=== PATIENT | male | born 1950 | race American Indian/Alaskan Native ===

== ENCOUNTER 2016-07-13 14:50 | Outpatient (CLI) | payer MEDICARE ==
--- NOTE | 2016-07-14 08:43 | XRay Report ---
CHEST TWO VIEWS: 07/13/16 14:50:00 CLINICAL: Cough. COMPARISON: 04/13/16 FINDINGS: Mild cardiomegaly. Mild central vascular congestion. The lungs are normally expanded and clear.The bones and soft tissues are unremarkable. IMPRESSION: Mild cardiomegaly and pulmonary venous hypertension. No pulmonary edema or pneumonia.
== END 2016-07-13 14:51 | disposition home or self-care (01) ==
LOC: SPVIMAG 14:50
DX: I51.7 Cardiomegaly (principal); I27.2 Other secondary pulmonary hypertension
CPT/HCPCS: 71020

== ENCOUNTER 2017-05-18 17:11 | Inpatient (IN) | payer MEDICARE ==
[2017-05-18 18:15] LABS: Basophils # (Auto) 0.1 K/mm3 (0.0-0.1); Eosinophils # (Auto) 0.1 K/mm3 (0.0-0.4); Eosinophils % (Auto) 1.3 % (0.0-4.3); Hematocrit 31.8 % (35.5-45.6); Hemoglobin 10.3 gm/dl (11.8-15.2); Lymphocytes # (Auto) 0.9 K/mm3 (1.2-5.4); Lymphocytes % (Auto) 16.2 % (13.4-35.0); Mean Corpuscular HGB Conc 32 % (32-34); Mean Corpuscular Hemoglobin 28 pg (28-32); Mean Corpuscular Volume 86 fl (84-94); Monocytes # (Auto) 0.5 K/mm3 (0.0-0.8); Monocytes % (Auto) 8.8 % (0.0-7.3); Platelet Count 204 K/mm3 (140-440); Red Blood Count 3.68 M/mm3 (3.65-5.03); Red Cell Distribution Width 15.9 % (13.2-15.2)
[2017-05-18 18:25] LABS: INR 0.89 (0.87-1.13)
[2017-05-18 18:26] LABS: Partial Thromboplastin Time 33.8 Sec. (24.2-36.6)
[2017-05-18 18:30] LABS: Albumin 3.8 g/dL (3.9-5); Calcium 8.5 mg/dL (8.4-10.2)
--- NOTE | 2017-05-18 19:43 | XRay Report ---
FINAL REPORT EXAM: XR CHEST ROUTINE 2V HISTORY: left arm pain. hx of septic arthritis TECHNIQUE: 2 views of the chest. PRIORS: 03/08/2017 FINDINGS: There is a right-sided Vas-Cath in place the tip overlying the right atrium. The cardiomediastinal silhouette appears normal. The lungs are clear. The bones and soft tissues are unremarkable. IMPRESSION: No evidence of acute cardiopulmonary disease
[2017-05-18] MEDS ORDERED: DILAUDID IV ONE (22:11)
[2017-05-18] MEDS ORDERED: ZOFRAN IV ONE (22:11)
--- NOTE | 2017-05-18 22:40 | Emergency Department Report ---
ED Fever HPI - General Chief Complaint: Extremity Injury, Upper Stated Complaint: ARM INFECTION DIALYSIS PORT Time Seen by Provider: 05/18/17 22:00 Source: patient, family, old records Exam Limitations: no limitations - History of Present Illness Initial Comments: 66-year-old male with a past medical history of arthritis, asthma, CHF, COPD, DVT, diabetes, CAD, hypertension, end-stage renal disease on dialysis, and admission in March for septic arthritis of the left elbow presents to the hospital with complaints of recurrent left elbow pain and fever. Upon previous medical records review pt was admitted her April 11 until April 16 with a diagnosis of MRSA left elbow joint infection. Patient was discharged after treatment in the hospital and continued vancomycin during dialysis until May 12 as per discharge summary note. Patient redeveloped left elbow pain last night was noticed to have over a 101 fever at dialysis today. Blood cultures and vancomycin was administered prior to arrival. Patient complains of 10/10 left elbow pain that is throbbing, constant, worse with movement and palpation. Patient denies cough. He states he still makes urine and has some dysuria for the last several days. ED Review of Systems ROS: Stated complaint: ARM INFECTION DIALYSIS PORT Other details as noted in HPI Comment: All other systems reviewed and negative ED Past Medical Hx - Past Medical History Previous Medical History?: Yes Hx Hypertension: Yes Hx Heart Attack/AMI: Yes Hx Congestive Heart Failure: Yes Hx Diabetes: Yes Hx Deep Vein Thrombosis: Yes Hx Pulmonary Embolism: Yes Hx GERD: Yes Hx Renal Disease: Yes ("kidney problems" renal insufficiency) Hx Arthritis: Yes Hx Asthma: Yes Hx COPD: Yes Hx HIV: No Additional medical history: glaucoma - Surgical History Past Surgical History?: Yes Additional Surgical History: left lung surgery (secondary to a "spot" on his lungs noncancerous) June, right chest perm cath - Social History Smoking Status: Former Smoker - Medications Home Medications: Home Medications Medication Instructions Recorded Confirmed Last Taken Type Latanoprost 1 drop OU QHS 04/11/13 04/11/17 04/10/17 History Aspirin [Aspirin TAB] 325 mg PO QDAY #30 tablet 10/29/16 04/11/17 04/10/17 Rx Gabapentin [Neurontin] 300 mg PO Q8H #90 capsule 10/29/16 04/11/17 04/10/17 Rx AtorvaSTATin [Lipitor] 40 mg PO QHS #30 tablet 03/14/17 04/11/17 04/10/17 Rx Carvedilol [Coreg] 25 mg PO BID #60 tablet 03/14/17 04/11/17 04/10/17 Rx Furosemide [Lasix TAB] 40 mg PO 0600,1800 #60 tablet 03/14/17 04/11/17 04/10/17 Rx Insulin NPH Hum/Reg Insulin Hm 36 unit SQ BID 30 Days vial 03/14/17 04/11/17 Rx [HumuLIN 70-30 Vial] Isosorbide Dinitrate [Isordil 10 mg PO Q8HR #90 tablet 03/14/17 04/11/17 Rx Titradose] hydrALAZINE [Apresoline TAB] 50 mg PO Q8HR #180 tablet 03/14/17 04/11/17 Rx predniSONE [Deltasone] 20 mg PO QDAY #5 tablet 04/18/17 Unknown Rx ED Physical Exam - General Limitations: Physical Limitation - Other Other exam information: General: No limitations Head exam: Atraumatic, normocephalic Eyes exam: Normal appearance ENT: Moist mucous membrane, normal oropharynx Neck exam: Normal inspection, full range of motion, no meningismus nontender Respiratory exam: Clear to auscultation bilateral, no wheezes, rales, crackles Cardiovascular: Normal rate and rhythm, right chest wall dialysis catheter Abdomen: Soft, nondistended, and nontender, with normal bowel sounds, no rebound, or guarding Extremity: Left elbow tender to light palpation, warm to touch, patient refusing to move elbow secondary to pain. Back: Normal Inspection, full range of motion, no tenderness Neurologic: Alert, oriented x3, cranial nerves intact, no motor or sensory deficit Psychiatric: normal affect, normal mood Skin: Warm, dry, intact ED Course Vital Signs 05/18/17 05/18/17 17:22 22:05 Temperature 97.8 F 99.0 F Pulse Rate 109 H 72 Respiratory 22 19 Rate Blood Pressure 150/86 Blood Pressure 140/72 [Left] O2 Sat by Pulse 95 100 Oximetry - Reevaluation(s) Reevaluation #1: 05/18/17 23:01 pt received dilaudid and zofran. pain improving - Consultations Consultation #1: 04/04/18 22:39 Case d/w Dr Rivera rec admission pt received blood cultures drawn and vancomycin prior to arrival at dialysis Center Consultation #2: 05/18/17 22:[address] Maciel orthopedic surgeon. He is familiar with the patient from previous admission. Will consult ED Medical Decision Making - Lab Data Result diagrams: 05/18/17 17:52 05/18/17 17:52 Lab Results 05/18/17 05/18/17 05/18/17 Range/Units 17:52 17:52 17:52 WBC 5.4 (4.5-11.0) K/mm3 RBC 3.68 (3.65-5.03) M/mm3 Hgb 10.3 L (11.8-15.2) gm/dl Hct 31.8 L (35.5-45.6) % MCV 86 (84-94) fl MCH 28 (28-32) pg MCHC 32 (32-34) % RDW 15.9 H (13.2-15.2) % Plt Count 204 (140-440) K/mm3 Lymph % (Auto) 16.2 (13.4-35.0) % [place] % (Auto) 8.8 H (0.0-7.3) % Eos % (Auto) 1.3 (0.0-4.3) % Baso % (Auto) 1.0 (0.0-1.8) % Lymph # 0.9 L (1.2-5.4) K/mm3 [place] # 0.5 (0.0-0.8) K/mm3 Eos # 0.1 (0.0-0.4) K/mm3 Baso # 0.1 (0.0-0.1) K/mm3 Seg Neutrophils % 72.7 H (40.0-70.0) % Seg Neutrophils # 3.9 (1.8-7.7) K/mm3 PT 12.5 (12.2-14.9) Sec. INR 0.89 (0.87-1.13) APTT 33.8 (24.2-36.6) Sec. Sodium 136 L (137-145) mmol/L Potassium 3.1 L (3.6-5.0) mmol/L Chloride 95.5 L (98-107) mmol/L Carbon Dioxide 25 (22-30) mmol/L Anion Gap 19 mmol/L BUN 14 (9-20) mg/dL Creatinine 2.7 H (0.8-1.5) mg/dL Estimated GFR 29 ml/min BUN/Creatinine Ratio 5 % Glucose 113 H (75-100) mg/dL Calcium 8.5 (8.4-10.2) mg/dL Total Bilirubin 0.50 (0.1-1.2) mg/dL AST 21 (5-40) units/L ALT 18 (7-56) units/L Alkaline Phosphatase 98 (35-129) units/L Total Protein 7.5 (6.3-8.2) g/dL Albumin 3.8 L (3.9-5) g/dL Albumin/Globulin Ratio 1.0 % - Medical Decision Making Left elbow pain Recently treated MRSA/septic arthritis until the end of April. Recurrent pain and fever Please see blood culture antibiotics prior to arrival Dilaudid and Zofran ordered for pain/nausea Dr. Maciel orthopedics called Hospitalist informed that infectious disease Dr. Brito will need to be consulted End-stage renal disease Compliant with dialysis with last session prior to arrival No signs of sepsis at this time Hospitalist to admit - Differential Diagnosis gout, inflammatory arthritis Critical Care Time: No Critical care attestation.: If time is entered above; I have spent that time in minutes in the direct care of this critically ill patient, excluding procedure time. ED Disposition Clinical Impression: ESRD needing dialysis, Fever Septic arthritis Qualifiers: Septic arthritis location: elbow Septic arthritis organism: due to unspecified organism Laterality: left Qualified Code(s): M00.9 - Pyogenic arthritis, unspecified Disposition: OP ADMIT IP TO THIS HOSP Is pt being admited?: Yes Condition: Stable Time of Disposition: 22:39 (Dr Ha/hosp)
--- NOTE | 2017-05-18 23:25 | History and Physical Report ---
History of Present Illness Date of examination: 05/18/17 History of present illness: 66-year-old man with a history of COPD, coronary artery disease, CHF, hypertension, diabetes, chronic kidney disease, glaucoma comes to the emergency room with complaints of left-sided chest pain that started on Tuesday which she describes a dull pain, radiating to the left shoulder, intermittent in nature, lasting for a few minutes, intensity 5/10. Admits to shortness of breath, no nausea vomiting diaphoresis or palpitation. He had a cardiac cath one year ago which was normal. He also complaining of left elbow pain, decreased range of motion and fever. He was given vancomycin at dialysis today and sent to the emergency room Review Of Systems: Constitutional: no weight loss Ears, eyes, nose, mouth and throat: no nasal congestion, no nasal discharge, no sinus pressure, blurry vision, diplopia Neck: No neck pain or rigidity. Cardiovascular: NO chest pain, orthopnea, palpitations Respiratory: No cough Gastrointestinal: no abdominal pain, hematochezia Genitourinary : no dysuria, frequency , hematuria Musculoskeletal: no muscle ache Integumentary: no rash, no pruritis Neurological: no parathesias, focal weakness Endocrine: no cold or heat intolerance, no polyuria or polydipsia Hematologic/Lymphatic: no easy bruising, no easy bleeding, no gland swelling Allergic/Immunologic: no urticaria, no angioedema. PAST MEDICAL HISTORY:COPD, coronary artery disease, CHF, hypertension, diabetes , chronic kidney disease, glaucoma PAST SURGICAL HISTORY:left lung surgery FAMILY HISTORY:diabetes, hypertension SOCIAL HISTORY: Denies alcohol, tobacco, drugs Medications and Allergies Allergies Allergy/AdvReac Type Severity Reaction Status Date / Time No Known Allergies Allergy Verified 04/11/17 08:05 Home Medications Medication Instructions Recorded Confirmed Last Taken Type Latanoprost 1 drop OU QHS 04/11/13 04/11/17 04/10/17 History Aspirin [Aspirin TAB] 325 mg PO QDAY #30 tablet 10/29/16 04/11/17 04/10/17 Rx Gabapentin [Neurontin] 300 mg PO Q8H #90 capsule 10/29/16 04/11/17 04/10/17 Rx AtorvaSTATin [Lipitor] 40 mg PO QHS #30 tablet 03/14/17 04/11/17 04/10/17 Rx Carvedilol [Coreg] 25 mg PO BID #60 tablet 03/14/17 04/11/17 04/10/17 Rx Furosemide [Lasix TAB] 40 mg PO 0600,1800 #60 tablet 03/14/17 04/11/17 04/10/17 Rx Insulin NPH Hum/Reg Insulin Hm 36 unit SQ BID 30 Days vial 03/14/17 04/11/17 Rx [HumuLIN 70-30 Vial] Isosorbide Dinitrate [Isordil 10 mg PO Q8HR #90 tablet 03/14/17 04/11/17 Rx Titradose] hydrALAZINE [Apresoline TAB] 50 mg PO Q8HR #180 tablet 03/14/17 04/11/17 Rx predniSONE [Deltasone] 20 mg PO QDAY #5 tablet 04/18/17 Unknown Rx Exam - Constitutional Vitals: Temp Pulse Resp BP Pulse Ox 99.0 F 72 19 140/72 100 05/18/17 22:05 05/18/17 22:05 05/18/17 22:05 05/18/17 22:05 05/18/17 22:05 Results - Labs CBC & Chem 7: 05/19/17 03:10 05/19/17 03:10 Labs: Abnormal lab results 05/18/17 05/18/17 Range/Units 17:52 17:52 Hgb 10.3 L (11.8-15.2) gm/dl Hct 31.8 L (35.5-45.6) % RDW 15.9 H (13.2-15.2) % [place] % (Auto) 8.8 H (0.0-7.3) % Lymph # 0.9 L (1.2-5.4) K/mm3 Seg Neutrophils % 72.7 H (40.0-70.0) % Sodium 136 L (137-145) mmol/L Potassium 3.1 L (3.6-5.0) mmol/L Chloride 95.5 L (98-107) mmol/L Creatinine 2.7 H (0.8-1.5) mg/dL Glucose 113 H (75-100) mg/dL Albumin 3.8 L (3.9-5) g/dL - Imaging and Cardiology EKG: image reviewed Chest x-ray: image reviewed Assessment and Plan Assessment septic joint Chest pain chronic heart failure, systolic dysfunction Coronary artery disease COPD Hypertension Diabetes Chronic kidney disease Glaucoma Plan Admit to medicine Follow cultures, start IV Zosyn, consult orthopedic, renal Chief cardiac enzymes, consult cardiology Continue appropiate outpatient medications Check fingersticks and initiate insulin sliding scale DVT Prophylaxis
[2017-05-18] MEDS ORDERED: SODIUM CHLORIDE FLUSH SYRINGE 10 ML IV PRN (23:30)
[2017-05-18] MEDS ORDERED: MORPHINE IV PRN (23:30)
[2017-05-18] MEDS ORDERED: D50W (25GM) Syringe IV PRN (23:30)
[2017-05-18] MEDS ORDERED: TYLENOL PO PRN (23:30)
[2017-05-18] MEDS ORDERED: ZOFRAN IV PRN (23:30)
[2017-05-19 00:42] LABS: Creatine Kinase MB 1.6 ng/mL (0.0-4.0)
[2017-05-19 01:18] LABS: Chol/HDL Ratio 6.25 %
[2017-05-19 03:47] LABS: Basophils # (Auto) 0.1 K/mm3 (0.0-0.1); Basophils % (Auto) 1.3 % (0.0-1.8); Eosinophils # (Auto) 0.1 K/mm3 (0.0-0.4); Eosinophils % (Auto) 1.7 % (0.0-4.3); Hematocrit 29.5 % (35.5-45.6); Hemoglobin 9.6 gm/dl (11.8-15.2); Lymphocytes # (Auto) 1.1 K/mm3 (1.2-5.4); Lymphocytes % (Auto) 19.9 % (13.4-35.0); Mean Corpuscular HGB Conc 33 % (32-34); Mean Corpuscular Hemoglobin 28 pg (28-32); Mean Corpuscular Volume 86 fl (84-94); Monocytes # (Auto) 0.5 K/mm3 (0.0-0.8); Monocytes % (Auto) 9.7 % (0.0-7.3); Platelet Count 195 K/mm3 (140-440); Red Blood Count 3.44 M/mm3 (3.65-5.03)
[2017-05-19 03:59] LABS: Calcium 7.8 mg/dL (8.4-10.2)
[2017-05-19] MEDS ORDERED: D50W (25GM) Syringe IV PRN (06:13)
[2017-05-19] MEDS: APRESOLINE PO SCH ×3 (06:38→22:25)
[2017-05-19] MEDS: ISORDIL TITRADOSE PO SCH ×3 (06:39→22:25)
[2017-05-19] MEDS: ZOSYN/NS 2.25 GM/50ML 2.25 GM/50 ML BAG IV SCH ×3 (06:40→22:28)
[2017-05-19] MEDS: LASIX PO SCH ×2 (06:40→18:16)
[2017-05-19] MEDS: HumuLIN R SUB-Q SCH ×3 (07:00→17:30)
[2017-05-19] MEDS: NEURONTIN PO SCH ×3 (08:00→22:24)
[2017-05-19 08:34] LABS: Creatine Kinase MB 1.6 ng/mL (0.0-4.0)
--- NOTE | 2017-05-19 09:23 | Progress Note ---
Assessment and Plan septic joint Chest pain chronic heart failure, systolic dysfunction Coronary artery disease COPD Hypertension Diabetes Chronic kidney disease Glaucoma Plan Follow cultures, start IV Zosyn, consult orthopedic, renal Cardiac enzymes, consult cardiology Continue appropiate outpatient medications Insulin sliding scale, consistent CHO diet DVT Prophylaxis Subjective Date of service: 05/19/17 Principal diagnosis: chest pain, HF, septic Interval history: still having chest pain Objective - Constitutional Vitals: Vital Signs - 12hr 05/18/17 05/18/17 05/19/17 22:00 22:05 03:27 Temperature 99.0 F 99.2 F Pulse Rate 72 102 H Respiratory 19 19 Rate Blood Pressure 115/75 Blood Pressure 140/72 136/72 [Left] O2 Sat by Pulse 100 96 Oximetry 05/19/17 05/19/17 05/19/17 04:05 05:07 06:39 Temperature 98.2 F Pulse Rate 104 H 84 84 Respiratory 18 Rate Blood Pressure 117/76 Blood Pressure 117/76 [Left] O2 Sat by Pulse 94 Oximetry General appearance: Present: no acute distress, well-nourished - EENT Eyes: PERRL, EOM intact Ears: bilateral: normal - Neck Neck: supple, normal ROM - Respiratory Respiratory effort: normal Respiratory: bilateral: CTA - Cardiovascular Rhythm: regular Heart Sounds: Present: S1 & S2. Absent: gallop, rub Extremities: pulses intact, No edema, normal color, Full ROM - Gastrointestinal General gastrointestinal: Present: soft, non-tender, non-distended, normal bowel sounds - Integumentary Integumentary: clear, warm, dry - Musculoskeletal Musculoskeletal: 1, strength equal bilaterally - Neurologic Neurologic: moves all extremities - Psychiatric Psychiatric: memory intact, appropriate mood/affect, intact judgment & insight - Labs CBC & Chem 7: 05/19/17 03:10 05/19/17 03:10 Labs: Abnormal lab results 05/18/17 05/18/17 05/19/17 Range/Units 17:52 17:52 00:10 RBC (3.65-5.03) M/mm3 Hgb 10.3 L (11.8-15.2) gm/dl Hct 31.8 L (35.5-45.6) % RDW 15.9 H (13.2-15.2) % [place] % (Auto) 8.8 H (0.0-7.3) % Lymph # 0.9 L (1.2-5.4) K/mm3 Seg Neutrophils % 72.7 H (40.0-70.0) % Sodium 136 L (137-145) mmol/L Potassium 3.1 L (3.6-5.0) mmol/L Chloride 95.5 L (98-107) mmol/L Creatinine 2.7 H (0.8-1.5) mg/dL Glucose 113 H (75-100) mg/dL POC Glucose (70-105) Calcium (8.4-10.2) mg/dL Total Creatine Kinase 177 H (55-170) units/L Troponin T 0.103 H* (0.00-0.029) ng/mL Albumin 3.8 L (3.9-5) g/dL Triglycerides 277 H (2-149) mg/dL HDL Cholesterol 24 L (40-59) mg/dL 05/19/17 05/19/17 05/19/17 Range/Units 03:10 03:10 05:45 RBC 3.44 L (3.65-5.03) M/mm3 Hgb 9.6 L (11.8-15.2) gm/dl Hct 29.5 L (35.5-45.6) % RDW 16.0 H (13.2-15.2) % [place] % (Auto) 9.7 H (0.0-7.3) % Lymph # 1.1 L (1.2-5.4) K/mm3 Seg Neutrophils % (40.0-70.0) % Sodium (137-145) mmol/L Potassium 3.4 L (3.6-5.0) mmol/L Chloride 95.8 L (98-107) mmol/L Creatinine 3.4 H (0.8-1.5) mg/dL Glucose 109 H (75-100) mg/dL POC Glucose 117 H (70-105) Calcium 7.8 L (8.4-10.2) mg/dL Total Creatine Kinase (55-170) units/L Troponin T (0.00-0.029) ng/mL Albumin (3.9-5) g/dL Triglycerides (2-149) mg/dL HDL Cholesterol (40-59) mg/dL 05/19/17 Range/Units 06:36 RBC (3.65-5.03) M/mm3 Hgb (11.8-15.2) gm/dl Hct (35.5-45.6) % RDW (13.2-15.2) % [place] % (Auto) (0.0-7.3) % Lymph # (1.2-5.4) K/mm3 Seg Neutrophils % (40.0-70.0) % Sodium (137-145) mmol/L Potassium (3.6-5.0) mmol/L Chloride (98-107) mmol/L Creatinine (0.8-1.5) mg/dL Glucose (75-100) mg/dL POC Glucose (70-105) Calcium (8.4-10.2) mg/dL Total Creatine Kinase (55-170) units/L Troponin T 0.118 H* (0.00-0.029) ng/mL Albumin (3.9-5) g/dL Triglycerides (2-149) mg/dL HDL Cholesterol (40-59) mg/dL
--- NOTE | 2017-05-19 09:38 | Consultation ---
History of Present Illness - Reason for Consult Consult date: 05/19/17 end stage renal disease Requesting physician: CHARY ADAMSON - History of Present Illness 66-year-old male with a past medical history of arthritis, asthma, CHF, COPD, DVT, diabetes, CAD, hypertension, end-stage renal disease on dialysis, and admission in March for septic arthritis of the left elbow presents to the hospital with complaints of recurrent left elbow pain and fever. Upon previous medical records review pt was admitted her April 11 until April 16 with a diagnosis of MRSA left elbow joint infection. Patient was discharged after treatment in the hospital and continued vancomycin during dialysis until May 12 as per discharge summary note. Patient redeveloped left elbow pain last night was noticed to have over a 101 fever at dialysis today. Blood cultures and vancomycin was administered prior to arrival. Patient complains of 10/10 left elbow pain that is throbbing, constant, worse with movement and palpation. Patient denies cough. He states he still makes urine and has some dysuria for the last several days. He had hemodialysis treatment yesterday. Patient denies any shortness of breath. No nausea or vomiting or diarrhea. Past History Past Medical History: CAD, COPD, diabetes, dialysis, heart failure, hypertension Past Surgical History: Other (history of PermCath placement) Social history: no significant social history Family history: no significant family history Medications and Allergies Allergies Allergy/AdvReac Type Severity Reaction Status Date / Time No Known Allergies Allergy Verified 04/11/17 08:05 Home Medications Medication Instructions Recorded Confirmed Last Taken Type Latanoprost 1 drop OU QHS 04/11/13 04/11/17 04/10/17 History Aspirin [Aspirin TAB] 325 mg PO QDAY #30 tablet 10/29/16 04/11/17 04/10/17 Rx Gabapentin [Neurontin] 300 mg PO Q8H #90 capsule 10/29/16 04/11/17 04/10/17 Rx AtorvaSTATin [Lipitor] 40 mg PO QHS #30 tablet 03/14/17 04/11/17 04/10/17 Rx Carvedilol [Coreg] 25 mg PO BID #60 tablet 03/14/17 04/11/17 04/10/17 Rx Furosemide [Lasix TAB] 40 mg PO 0600,1800 #60 tablet 03/14/17 04/11/17 04/10/17 Rx Insulin NPH Hum/Reg Insulin Hm 36 unit SQ BID 30 Days vial 03/14/17 04/11/17 Rx [HumuLIN 70-30 Vial] Isosorbide Dinitrate [Isordil 10 mg PO Q8HR #90 tablet 03/14/17 04/11/17 Rx Titradose] hydrALAZINE [Apresoline TAB] 50 mg PO Q8HR #180 tablet 03/14/17 04/11/17 Rx predniSONE [Deltasone] 20 mg PO QDAY #5 tablet 04/18/17 Unknown Rx Active Meds: Active Medications Acetaminophen (Tylenol) 650 mg PO Q4H PRN PRN Reason: Pain MILD(1-3)/Fever >100.5/TANG Aspirin (Aspirin) 325 mg PO QDAY [facility] Atorvastatin Calcium (Lipitor) 40 mg PO QHS [facility] Carvedilol (Coreg) 25 mg PO BID [facility] Dextrose (D50w (25gm) Syringe) 50 ml IV PRN PRN PRN Reason: Hypoglycemia Enoxaparin Sodium (Lovenox) 30 mg SUB-Q QDAY [facility] Furosemide (Lasix) 40 mg PO 0600,1800 [facility] Last Admin: 05/19/17 06:40 Dose: 40 mg Gabapentin (Neurontin) 300 mg PO Q8HR [facility] Last Admin: 05/19/17 08:00 Dose: 300 mg Hydralazine HCl (Apresoline) 50 mg PO Q8HR [facility] Last Admin: 05/19/17 06:38 Dose: Not Given Piperacillin Sod/Tazobactam Sod (Zosyn/Ns 2.25 Gm/50ml) 2.25 gm in 50 mls @ 100 mls/hr IV Q8HR [facility]; Protocol Last Admin: 05/19/17 06:40 Dose: 100 mls/hr Insulin Human Isoph/Insulin Regular (Humulin 70/30) 36 unit SUB-Q BIDDIAB [facility] Last Admin: 05/19/17 08:00 Dose: 36 unit Insulin Human Regular (Humulin R) 0 units SUB-Q ACHS [facility]; Protocol Last Admin: 05/19/17 07:00 Dose: Not Given Isosorbide Dinitrate (Isordil Titradose) 10 mg PO Q8HR [facility] Last Admin: 05/19/17 06:39 Dose: Not Given Latanoprost (Latanoprost 0.005%) 1 drops OU QHS [facility] Morphine Sulfate (Morphine) 2 mg IV Q4H PRN PRN Reason: Pain, Moderate (4-6) Ondansetron HCl (Zofran) 4 mg IV Q8H PRN PRN Reason: Nausea And Vomiting Prednisone (Deltasone) 20 mg PO QDAY [facility] Sodium Chloride (Sodium Chloride Flush Syringe 10 Ml) 10 ml IV BID [facility] Sodium Chloride (Sodium Chloride Flush Syringe 10 Ml) 10 ml IV PRN PRN PRN Reason: LINE FLUSH Last Admin: 05/19/17 06:46 Dose: 10 ml Review of Systems All systems: negative (except as noted above) Exam - Vital Signs Vital signs: Vital Signs Temp Pulse Resp BP Pulse Ox 97.8 F 109 H 22 150/86 95 05/18/17 17:22 05/18/17 17:22 05/18/17 17:22 05/18/17 17:22 05/18/17 17:22 - General Appearance General appearance: well-developed, well-nourished, appears stated age EENT: PERRL, mucous membranes moist Neck: Present: neck supple, trachea midline, Other (right IJ PermCath in place) . Absent: JVD/HJR, [place] Respiratory: Clear to Ascultation Heart: regular, normal heart rate, S1S2, no murmurs Gastrointestinal: Present: normal, normoactive bowel sounds Musculoskeletal: Present: joint swelling (painful swelling in left elbow) Results - Lab Results 05/19/17 03:10 05/19/17 03:10 Most recent lab results Calcium 7.8 mg/dL (8.4-10.2) L 05/19/17 03:10 Assessment and Plan Impression * End-stage renal disease on maintenance hemodialysis * Painful swelling of left elbow * Recent septic arthritis * Hypertension * Diabetes * Coronary artery disease * Anemia secondary to ESRD Recommendations * No urgent indication for dialysis today. * Continue dialysis on Mondays, Wednesdays and Fridays as outpatient * Agree with cultures and broad-spectrum antibiotic * Procrit with dialysis * Binders with diet * Adjust diet and meds for ESRD state * Thank you very much for the consultation. Shall follow along with you
[2017-05-19] MEDS: COREG PO SCH ×2 (09:48→22:26)
[2017-05-19] MEDS: LOVENOX SUB-Q SCH (09:49)
[2017-05-19] MEDS: ASPIRIN PO SCH (09:49)
[2017-05-19] MEDS ORDERED: DELTASONE PO SCH (10:00)
[2017-05-19] MEDS: NORCO 5/325 PO PRN (11:17)
--- NOTE | 2017-05-19 12:40 | Consultation ---
History of Present Illness - [facility] Consult date: 05/19/17 Consult reason: joint pain History of present illness: 66 y/o male with c/o left arm pain, asked to evaluate possibility of deep infection... Past History Past Medical History: CAD, COPD, diabetes, dialysis, heart failure, hypertension Past Surgical History: Other (history of PermCath placement) Social history: no significant social history Family history: no significant family history Medications and Allergies Allergies Allergy/AdvReac Type Severity Reaction Status Date / Time No Known Allergies Allergy Verified 04/11/17 08:05 Home Medications Medication Instructions Recorded Confirmed Last Taken Type Latanoprost 1 drop OU QHS 04/11/13 04/11/17 04/10/17 History Aspirin [Aspirin TAB] 325 mg PO QDAY #30 tablet 10/29/16 04/11/17 04/10/17 Rx Gabapentin [Neurontin] 300 mg PO Q8H #90 capsule 10/29/16 04/11/17 04/10/17 Rx AtorvaSTATin [Lipitor] 40 mg PO QHS #30 tablet 03/14/17 04/11/17 04/10/17 Rx Carvedilol [Coreg] 25 mg PO BID #60 tablet 03/14/17 04/11/17 04/10/17 Rx Furosemide [Lasix TAB] 40 mg PO 0600,1800 #60 tablet 03/14/17 04/11/17 04/10/17 Rx Insulin NPH Hum/Reg Insulin Hm 36 unit SQ BID 30 Days vial 03/14/17 04/11/17 Rx [HumuLIN 70-30 Vial] Isosorbide Dinitrate [Isordil 10 mg PO Q8HR #90 tablet 03/14/17 04/11/17 Rx Titradose] hydrALAZINE [Apresoline TAB] 50 mg PO Q8HR #180 tablet 03/14/17 04/11/17 Rx predniSONE [Deltasone] 20 mg PO QDAY #5 tablet 04/18/17 Unknown Rx Active Meds: Active Medications Acetaminophen (Tylenol) 650 mg PO Q4H PRN PRN Reason: Pain MILD(1-3)/Fever >100.5/TANG Acetaminophen/Hydrocodone Bitart ([place] 5/325) 1 each PO Q6H PRN PRN Reason: Pain, Moderate (4-6) Last Admin: 05/19/17 11:17 Dose: 1 each Aspirin (Aspirin) 325 mg PO QDAY [facility] Last Admin: 05/19/17 09:49 Dose: 325 mg Atorvastatin Calcium (Lipitor) 40 mg PO QHS [facility] Carvedilol (Coreg) 25 mg PO BID [facility] Last Admin: 05/19/17 09:48 Dose: 25 mg Dextrose (D50w (25gm) Syringe) 50 ml IV PRN PRN PRN Reason: Hypoglycemia Enoxaparin Sodium (Lovenox) 30 mg SUB-Q QDAY [facility] Last Admin: 05/19/17 09:49 Dose: 30 mg Furosemide (Lasix) 40 mg PO 0600,1800 [facility] Last Admin: 05/19/17 06:40 Dose: 40 mg Gabapentin (Neurontin) 300 mg PO Q8HR [facility] Last Admin: 05/19/17 08:00 Dose: 300 mg Hydralazine HCl (Apresoline) 50 mg PO Q8HR [facility] Last Admin: 05/19/17 06:38 Dose: Not Given Piperacillin Sod/Tazobactam Sod (Zosyn/Ns 2.25 Gm/50ml) 2.25 gm in 50 mls @ 100 mls/hr IV Q8HR [facility]; Protocol Last Admin: 05/19/17 06:40 Dose: 100 mls/hr Insulin Human Isoph/Insulin Regular (Humulin 70/30) 36 unit SUB-Q BIDDIAB [facility] Last Admin: 05/19/17 08:00 Dose: 36 unit Insulin Human Regular (Humulin R) 0 units SUB-Q ACHS [facility]; Protocol Last Admin: 05/19/17 07:00 Dose: Not Given Isosorbide Dinitrate (Isordil Titradose) 10 mg PO Q8HR [facility] Last Admin: 05/19/17 06:39 Dose: Not Given Latanoprost (Latanoprost 0.005%) 1 drops OU QHS [facility] Morphine Sulfate (Morphine) 2 mg IV Q4H PRN PRN Reason: Pain, Moderate (4-6) Ondansetron HCl (Zofran) 4 mg IV Q8H PRN PRN Reason: Nausea And Vomiting Prednisone (Deltasone) 20 mg PO QDAY [facility] Last Admin: 05/19/17 09:48 Dose: 20 mg Sodium Chloride (Sodium Chloride Flush Syringe 10 Ml) 10 ml IV BID [facility] Sodium Chloride (Sodium Chloride Flush Syringe 10 Ml) 10 ml IV PRN PRN PRN Reason: LINE FLUSH Last Admin: 05/19/17 06:46 Dose: 10 ml Physical Examination - Physical exam Narrative exam: afebrile, wbc 6, patient with good passive and active ROM at left elbow Assessment and Plan left arm pain, doubt septic source in elbow joint continue observation and antibiotics
--- NOTE | 2017-05-19 12:52 | Consultation ---
History of Present Illness Consult date: 05/19/17 Consult reason: chest pain History of present illness: This is a 66yr old male with a history of end stage renal disease on hemodialysis. He was sent from dialysis to this hospital with complaints of left arm pain, fever and chills. Chest xray is negative. A cardiac consultation was requested for evaluation of chest pain. There is no ECG available for review. There is no history of coronary artery disease. Patient underwent extensive invasive cardiac workup in the past. A right and left cardiac cath a year ago demonstrated normal coronaries, but there was a finding of severe pulmonary hypertension with pulmonary artery systolic pressure 80 mmHg. A recent echocardiogram reports a decreased left ventricular systolic function of 30-35%. Past History Past Medical History: CAD, COPD, diabetes, dialysis, heart failure, hypertension Past Surgical History: Other (history of PermCath placement) Social history: no significant social history Family history: no significant family history Medications and Allergies Allergies Allergy/AdvReac Type Severity Reaction Status Date / Time No Known Allergies Allergy Verified 04/11/17 08:05 Home Medications Medication Instructions Recorded Confirmed Last Taken Type Latanoprost 1 drop OU QHS 04/11/13 04/11/17 04/10/17 History Aspirin [Aspirin TAB] 325 mg PO QDAY #30 tablet 10/29/16 04/11/17 04/10/17 Rx Gabapentin [Neurontin] 300 mg PO Q8H #90 capsule 10/29/16 04/11/17 04/10/17 Rx AtorvaSTATin [Lipitor] 40 mg PO QHS #30 tablet 03/14/17 04/11/17 04/10/17 Rx Carvedilol [Coreg] 25 mg PO BID #60 tablet 03/14/17 04/11/17 04/10/17 Rx Furosemide [Lasix TAB] 40 mg PO 0600,1800 #60 tablet 03/14/17 04/11/17 04/10/17 Rx Insulin NPH Hum/Reg Insulin Hm 36 unit SQ BID 30 Days vial 03/14/17 04/11/17 Rx [HumuLIN 70-30 Vial] Isosorbide Dinitrate [Isordil 10 mg PO Q8HR #90 tablet 03/14/17 04/11/17 Rx Titradose] hydrALAZINE [Apresoline TAB] 50 mg PO Q8HR #180 tablet 03/14/17 04/11/17 Rx predniSONE [Deltasone] 20 mg PO QDAY #5 tablet 04/18/17 Unknown Rx Active Meds: Active Medications Acetaminophen (Tylenol) 650 mg PO Q4H PRN PRN Reason: Pain MILD(1-3)/Fever >100.5/TANG Acetaminophen/Hydrocodone Bitart ([place] 5/325) 1 each PO Q6H PRN PRN Reason: Pain, Moderate (4-6) Last Admin: 05/19/17 11:17 Dose: 1 each Aspirin (Aspirin) 325 mg PO QDAY [facility] Last Admin: 05/19/17 09:49 Dose: 325 mg Atorvastatin Calcium (Lipitor) 40 mg PO QHS [facility] Carvedilol (Coreg) 25 mg PO BID [facility] Last Admin: 05/19/17 09:48 Dose: 25 mg Dextrose (D50w (25gm) Syringe) 50 ml IV PRN PRN PRN Reason: Hypoglycemia Enoxaparin Sodium (Lovenox) 30 mg SUB-Q QDAY [facility] Last Admin: 05/19/17 09:49 Dose: 30 mg Furosemide (Lasix) 40 mg PO 0600,1800 [facility] Last Admin: 05/19/17 06:40 Dose: 40 mg Gabapentin (Neurontin) 300 mg PO Q8HR [facility] Last Admin: 05/19/17 08:00 Dose: 300 mg Hydralazine HCl (Apresoline) 50 mg PO Q8HR [facility] Last Admin: 05/19/17 06:38 Dose: Not Given Piperacillin Sod/Tazobactam Sod (Zosyn/Ns 2.25 Gm/50ml) 2.25 gm in 50 mls @ 100 mls/hr IV Q8HR [facility]; Protocol Last Admin: 05/19/17 06:40 Dose: 100 mls/hr Insulin Human Isoph/Insulin Regular (Humulin 70/30) 36 unit SUB-Q BIDDIAB [facility] Last Admin: 05/19/17 08:00 Dose: 36 unit Insulin Human Regular (Humulin R) 0 units SUB-Q ACHS [facility]; Protocol Last Admin: 05/19/17 07:00 Dose: Not Given Isosorbide Dinitrate (Isordil Titradose) 10 mg PO Q8HR [facility] Last Admin: 05/19/17 06:39 Dose: Not Given Latanoprost (Latanoprost 0.005%) 1 drops OU QHS [facility] Morphine Sulfate (Morphine) 2 mg IV Q4H PRN PRN Reason: Pain, Moderate (4-6) Ondansetron HCl (Zofran) 4 mg IV Q8H PRN PRN Reason: Nausea And Vomiting Prednisone (Deltasone) 20 mg PO QDAY [facility] Last Admin: 05/19/17 09:48 Dose: 20 mg Sodium Chloride (Sodium Chloride Flush Syringe 10 Ml) 10 ml IV BID [facility] Sodium Chloride (Sodium Chloride Flush Syringe 10 Ml) 10 ml IV PRN PRN PRN Reason: LINE FLUSH Last Admin: 05/19/17 06:46 Dose: 10 ml Physical Examination Vital Signs Temp Pulse Resp BP Pulse Ox 97.8 F 109 H 22 150/86 95 05/18/17 17:22 05/18/17 17:22 05/18/17 17:22 05/18/17 17:22 05/18/17 17:22 Results 05/19/17 03:10 05/19/17 03:10 Cardiac Enzymes 05/18/17 05/19/17 05/19/17 Range/Units 17:52 00:10 06:36 AST 21 (5-40) units/L CK-MB (CK-2) 1.6 1.6 (0.0-4.0) ng/mL Coagulation 05/18/17 Range/Units 17:52 PT 12.5 (12.2-14.9) Sec. INR 0.89 (0.87-1.13) APTT 33.8 (24.2-36.6) Sec. Lipids 05/19/17 Range/Units 00:10 Triglycerides 277 H (2-149) mg/dL Cholesterol 150 (50-199) mg/dL HDL Cholesterol 24 L (40-59) mg/dL Cholesterol/HDL Ratio 6.25 % CBC 05/18/17 05/19/17 Range/Units 17:52 03:10 WBC 5.4 5.6 (4.5-11.0) K/mm3 RBC 3.68 3.44 L (3.65-5.03) M/mm3 Hgb 10.3 L 9.6 L (11.8-15.2) gm/dl Hct 31.8 L 29.5 L (35.5-45.6) % Plt Count 204 195 (140-440) K/mm3 Lymph # 0.9 L 1.1 L (1.2-5.4) K/mm3 [place] # 0.5 0.5 (0.0-0.8) K/mm3 Eos # 0.1 0.1 (0.0-0.4) K/mm3 Baso # 0.1 0.1 (0.0-0.1) K/mm3 Comprehensive Metabolic Panel 05/18/17 05/19/17 Range/Units 17:52 03:10 Sodium 136 L 137 (137-145) mmol/L Potassium 3.1 L 3.4 L (3.6-5.0) mmol/L Chloride 95.5 L 95.8 L (98-107) mmol/L Carbon Dioxide 25 26 (22-30) mmol/L BUN 14 18 (9-20) mg/dL Creatinine 2.7 H 3.4 H (0.8-1.5) mg/dL Glucose 113 H 109 H (75-100) mg/dL Calcium 8.5 7.8 L (8.4-10.2) mg/dL AST 21 (5-40) units/L ALT 18 (7-56) units/L Alkaline Phosphatase 98 (35-129) units/L Total Protein 7.5 (6.3-8.2) g/dL Albumin 3.8 L (3.9-5) g/dL Assessment and Plan Atypical chest pain [facility] 04/2016: normal coronaries Pulmonary HTN [facility] 04/2016: severe pulmonary hypertension with a pulmonary artery systolic 3 pressure that was measured at 80 mmHg.Group 2 and 3 pulmonary hypertension ESRD on dialysis Hypertension Diabetes Nonspecific elevated troponin Obesity Sleep apnea
[2017-05-19] MEDS ORDERED: BENADRYL PO PRN (17:14)
[2017-05-19] MEDS: SODIUM CHLORIDE FLUSH SYRINGE 10 ML IV SCH ×2 (22:23→22:26)
[2017-05-19] MEDS: LATANOPROST 0.005% OU SCH (22:41)
--- NOTE | 2017-05-20 01:55 | Progress Note ---
Assessment and Plan Assessment and plan: 66-year-old man with a history of COPD, coronary artery disease, CHF, hypertension, diabetes, esrd, glaucoma comes to the emergency room with complaints of left-sided chest pain , shortness of breath, He had a cardiac cath one year ago which was normal. He also complaining of left elbow pain, decreased range of motion and fever. He was given vancomycin at dialysis and sent to the emergency room LUE pain likely due to PC placement -will check Vascular US on UE, and consult vascular sx -orthopedic sx input appreciated Chest pain -likely musculoskeletal from PC placement -cardiology input appreciated -trop chronically elevated due to ESRD -recent cath, no further workup needed chronic heart failure, systolic dysfunction. ef 35% continue fluid status management per HD, nephrology on board COPD stable Hypertension continue meds Diabetes with hyperglycemia optmize insulins ESRD continue HD per renal Glaucoma History Interval history: Review of systems Constitutional: No fevers, no malaise, no joint pains CVS: No chest pain, no orthopnea, no dyspnea on exertion, no pedal edema GI: No abdominal pain, no diarrhea, no vomiting, no constipation Respiratory: No shortness of breath, no wheezing, no coughing Hospitalist Physical - Physical exam Narrative exam: General.: Appears well, no distress, nontoxic HEENT: Moist mucous membranes, extraocular muscles intact, no lymphadenopathy Neck: supple Cardiac: S1-S2 heard Lungs: clear to auscultation bilaterally Abdomen: soft , nontender, nondistended, bowel sounds positive Extremities: no edema clubbing or cyanosis Skin: no rash or lesions Neurologic: no gross focal deficits Psych: appropriate behavior, appropriate mood, corporative, judgment intact - Constitutional Vitals: Temp Pulse Resp BP Pulse Ox -98.3 F L 79 22 108/56 95 05/20/17 00:50 05/20/17 00:50 05/20/17 00:50 05/20/17 00:50 05/20/17 00:50 General appearance: Present: no acute distress, well-nourished Results - Labs CBC & Chem 7: 05/20/17 08:30 05/20/17 08:30 Labs: Laboratory Last Values WBC 5.6 K/mm3 (4.5-11.0) 05/19/17 03:10 RBC 3.44 M/mm3 (3.65-5.03) L 05/19/17 03:10 Hgb 9.6 gm/dl (11.8-15.2) L 05/19/17 03:10 Hct 29.5 % (35.5-45.6) L 05/19/17 03:10 MCV 86 fl (84-94) 05/19/17 03:10 MCH 28 pg (28-32) 05/19/17 03:10 MCHC 33 % (32-34) 05/19/17 03:10 RDW 16.0 % (13.2-15.2) H 05/19/17 03:10 Plt Count 195 K/mm3 (140-440) 05/19/17 03:10 Lymph % (Auto) 19.9 % (13.4-35.0) 05/19/17 03:10 [place] % (Auto) 9.7 % (0.0-7.3) H 05/19/17 03:10 Eos % (Auto) 1.7 % (0.0-4.3) 05/19/17 03:10 Baso % (Auto) 1.3 % (0.0-1.8) 05/19/17 03:10 Lymph # 1.1 K/mm3 (1.2-5.4) L 05/19/17 03:10 [place] # 0.5 K/mm3 (0.0-0.8) 05/19/17 03:10 Eos # 0.1 K/mm3 (0.0-0.4) 05/19/17 03:10 Baso # 0.1 K/mm3 (0.0-0.1) 05/19/17 03:10 Seg Neutrophils % 67.4 % (40.0-70.0) 05/19/17 03:10 Seg Neutrophils # 3.8 K/mm3 (1.8-7.7) 05/19/17 03:10 PT 12.5 Sec. (12.2-14.9) 05/18/17 17:52 INR 0.89 (0.87-1.13) 05/18/17 17:52 APTT 33.8 Sec. (24.2-36.6) 05/18/17 17:52 Sodium 137 mmol/L (137-145) 05/19/17 03:10 Potassium 3.4 mmol/L (3.6-5.0) L 05/19/17 03:10 Chloride 95.8 mmol/L (98-107) L 05/19/17 03:10 Carbon Dioxide 26 mmol/L (22-30) 05/19/17 03:10 Anion Gap 19 mmol/L 05/19/17 03:10 BUN 18 mg/dL (9-20) 05/19/17 03:10 Creatinine 3.4 mg/dL (0.8-1.5) H 05/19/17 03:10 Estimated GFR 22 ml/min 05/19/17 03:10 BUN/Creatinine Ratio 5 % 05/19/17 03:10 Glucose 109 mg/dL (75-100) H 05/19/17 03:10 POC Glucose 335 (70-105) H 05/19/17 15:26 Calcium 7.8 mg/dL (8.4-10.2) L 05/19/17 03:10 Total Bilirubin 0.50 mg/dL (0.1-1.2) 05/18/17 17:52 AST 21 units/L (5-40) 05/18/17 17:52 ALT 18 units/L (7-56) 05/18/17 17:52 Alkaline Phosphatase 98 units/L (35-129) 05/18/17 17:52 Total Creatine Kinase 165 units/L (55-170) 05/19/17 06:36 CK-MB (CK-2) 1.6 ng/mL (0.0-4.0) 05/19/17 06:36 CK-MB (CK-2) Rel Index 0.9 (0-4) 05/19/17 06:36 Troponin T 0.118 ng/mL (0.00-0.029) H* 05/19/17 06:36 Total Protein 7.5 g/dL (6.3-8.2) 05/18/17 17:52 Albumin 3.8 g/dL (3.9-5) L 05/18/17 17:52 Albumin/Globulin Ratio 1.0 % 05/18/17 17:52 Triglycerides 277 mg/dL (2-149) H 05/19/17 00:10 Cholesterol 150 mg/dL (50-199) 05/19/17 00:10 LDL Cholesterol Direct 78 mg/dL (50-130) 05/19/17 00:10 HDL Cholesterol 24 mg/dL (40-59) L 05/19/17 00:10 Cholesterol/HDL Ratio 6.25 % 05/19/17 00:10
[2017-05-20] MEDS: HumuLIN R SUB-Q SCH ×5 (02:58→22:12)
[2017-05-20] MEDS: LASIX PO SCH ×3 (05:35→18:40)
[2017-05-20] MEDS: NEURONTIN PO SCH ×3 (05:36→22:13)
[2017-05-20] MEDS: ZOSYN/NS 2.25 GM/50ML 2.25 GM/50 ML BAG IV SCH ×3 (05:37→22:12)
[2017-05-20 08:54] LABS: Basophils # (Auto) 0.1 K/mm3 (0.0-0.1); Eosinophils % (Auto) 0.2 % (0.0-4.3); Hematocrit 27.7 % (35.5-45.6); Hemoglobin 9.3 gm/dl (11.8-15.2); Lymphocytes % (Auto) 13.5 % (13.4-35.0); Mean Corpuscular HGB Conc 33 % (32-34); Mean Corpuscular Hemoglobin 28 pg (28-32); Mean Corpuscular Volume 84 fl (84-94); Monocytes # (Auto) 0.6 K/mm3 (0.0-0.8); Platelet Count 193 K/mm3 (140-440); Red Blood Count 3.29 M/mm3 (3.65-5.03); Red Cell Distribution Width 15.5 % (13.2-15.2)
[2017-05-20 09:11] LABS: Albumin 3.2 g/dL (3.9-5); Calcium 7.9 mg/dL (8.4-10.2)
[2017-05-20] MEDS: LOVENOX SUB-Q SCH (10:00)
[2017-05-20] MEDS: SODIUM CHLORIDE FLUSH SYRINGE 10 ML IV SCH ×2 (10:00→22:15)
[2017-05-20] MEDS: COREG PO SCH ×2 (10:00→22:13)
[2017-05-20] MEDS: DELTASONE PO SCH (10:00)
[2017-05-20] MEDS: ASPIRIN PO SCH (10:00)
[2017-05-20] MEDS ORDERED: NACL 0.9% 100 ML IV PRN (10:38)
--- NOTE | 2017-05-20 13:31 | Progress Note ---
Assessment and Plan Impression * End-stage renal disease on maintenance hemodialysis * Painful swelling of left elbow * Recent septic arthritis * Hypertension * Diabetes * Coronary artery disease * Anemia secondary to ESRD Recommendations * Continue dialysis on Mondays, Wednesdays and Fridays as outpatient * patient remains afebrile . Apparently no blood cultures were sent * On empiric antibiotic * Consultants notes appreciated * Procrit with dialysis * Binders with diet * Adjust diet and meds for ESRD state Subjective Date of service: 05/20/17 Principal diagnosis: chest pain, HF, septic Interval history: pt undergoing dialysis . Left elbow pain seems to be better Objective - Vital Signs Vital signs: Vital Signs - 12hr 05/20/17 05/20/17 05:00 08:06 Temperature 97.7 F 98.3 F Pulse Rate 86 68 Respiratory 22 16 Rate Blood Pressure 112/57 Blood Pressure 112/61 [Left] O2 Sat by Pulse 93 99 Oximetry - General Appearance General appearance: well-developed, well-nourished, appears stated age EENT: PERRL, mucous membranes moist Neck: no JVD, no thyromegaly, no carotid bruit, supple, other (right IJ permcath in place ) Respiratory: Present: Clear to Ascultation Cardiology: regular, normal heart rate Gastrointestinal: normal, normoactive bowel sounds Integumentary: other (no edema ) - Lab 05/20/17 08:30 05/20/17 08:30 Most recent lab results Calcium 7.9 mg/dL (8.4-10.2) L 05/20/17 08:30
[2017-05-20] MEDS: ISORDIL TITRADOSE PO SCH ×2 (14:00→22:13)
[2017-05-20] MEDS: APRESOLINE PO SCH ×2 (14:00→22:14)
[2017-05-20] MEDS: PROCRIT IV PRN (14:30)
[2017-05-20] MEDS: HEPARIN IV PRN (15:05)
[2017-05-20] MEDS ORDERED: NACL 0.9 (PRIMING MACHINE ONLY DIALYSIS) MC ONE (15:16)
--- NOTE | 2017-05-20 16:42 | Consultation ---
History of Present Illness - Reason for Consult Consult date: 05/20/17 Left arm pain - History of Present Illness Patient has left arm swelling and normal range of motion. No elevated WBC, no elevated temp, no cultures yet. He was treated for prior septic joint with outpatient Vancomycin. Vascular studies are normal. Past History Past Medical History: CAD, COPD, diabetes, dialysis, heart failure, hypertension Past Surgical History: Other (history of PermCath placement) Social history: no significant social history Family history: no significant family history Medications and Allergies Allergies Allergy/AdvReac Type Severity Reaction Status Date / Time No Known Allergies Allergy Verified 04/11/17 08:05 Home Medications Medication Instructions Recorded Confirmed Last Taken Type Latanoprost 1 drop OU QHS 04/11/13 05/20/17 1 Day Ago History ~05/19/17 Aspirin [Aspirin TAB] 325 mg PO QDAY #30 tablet 10/29/16 05/20/17 1 Day Ago Rx ~05/19/17 Gabapentin [Neurontin] 300 mg PO Q8H #90 capsule 10/29/16 05/20/17 1 Day Ago Rx ~05/19/17 AtorvaSTATin [Lipitor] 40 mg PO QHS #30 tablet 03/14/17 05/20/17 1 Day Ago Rx ~05/19/17 Carvedilol [Coreg] 25 mg PO BID #60 tablet 03/14/17 05/20/17 1 Day Ago Rx ~05/19/17 Furosemide [Lasix TAB] 40 mg PO 0600,1800 #60 tablet 03/14/17 05/20/17 1 Day Ago Rx ~05/19/17 Insulin NPH Hum/Reg Insulin Hm 36 unit SQ BID 30 Days vial 03/14/17 05/20/17 1 Day Ago Rx [HumuLIN 70-30 Vial] ~05/19/17 Isosorbide Dinitrate [Isordil 10 mg PO Q8HR #90 tablet 03/14/17 05/20/17 1 Day Ago Rx Titradose] ~05/19/17 hydrALAZINE [Apresoline TAB] 50 mg PO Q8HR #180 tablet 03/14/17 05/20/17 1 Day Ago Rx ~05/19/17 Active Meds: Active Medications Acetaminophen (Tylenol) 650 mg PO Q4H PRN PRN Reason: Pain MILD(1-3)/Fever >100.5/TANG Acetaminophen/Hydrocodone Bitart ([place] 5/325) 1 each PO Q6H PRN PRN Reason: Pain, Moderate (4-6) Last Admin: 05/19/17 11:17 Dose: 1 each Aspirin (Aspirin) 325 mg PO QDAY [facility] Last Admin: 05/19/17 09:49 Dose: 325 mg Atorvastatin Calcium (Lipitor) 40 mg PO QHS [facility] Last Admin: 05/19/17 22:24 Dose: 40 mg Carvedilol (Coreg) 25 mg PO BID [facility] Last Admin: 05/19/17 22:26 Dose: 25 mg Dextrose (D50w (25gm) Syringe) 50 ml IV PRN PRN PRN Reason: Hypoglycemia Diphenhydramine HCl (Benadryl) 25 mg PO Q6H PRN PRN Reason: Itching Last Admin: 05/19/17 18:16 Dose: 25 mg Enoxaparin Sodium (Lovenox) 30 mg SUB-Q QDAY [facility] Last Admin: 05/19/17 09:49 Dose: 30 mg Epoetin Lui (Procrit) 10,000 unit IV [place] PRN PRN Reason: hemodialysis Furosemide (Lasix) 40 mg PO 0600,1800 [facility] Last Admin: 05/20/17 05:36 Dose: 40 mg Gabapentin (Neurontin) 300 mg PO Q8HR [facility] Last Admin: 05/20/17 05:36 Dose: 300 mg Heparin Sodium (Porcine) (Heparin) 5,000 unit IV [place] PRN PRN Reason: hemodialysis Hydralazine HCl (Apresoline) 50 mg PO Q8HR [facility] Last Admin: 05/19/17 22:25 Dose: Not Given Piperacillin Sod/Tazobactam Sod (Zosyn/Ns 2.25 Gm/50ml) 2.25 gm in 50 mls @ 100 mls/hr IV Q8HR [facility]; Protocol Last Admin: 05/20/17 05:37 Dose: 100 mls/hr Sodium Chloride (Nacl 0.9%) 100 mls @ 999 mls/hr IV [place] PRN PRN Reason: Hypotension Insulin Human Isoph/Insulin Regular (Humulin 70/30) 40 unit SUB-Q BIDDIAB [facility] Insulin Human Regular (Humulin R) 0 units SUB-Q ACHS [facility]; Protocol Last Admin: 05/20/17 02:58 Dose: 10 units Isosorbide Dinitrate (Isordil Titradose) 10 mg PO Q8HR [facility] Last Admin: 05/19/17 22:25 Dose: Not Given Latanoprost (Latanoprost 0.005%) 1 drops OU QHS [facility] Last Admin: 05/19/17 22:41 Dose: 1 drops Ondansetron HCl (Zofran) 4 mg IV Q8H PRN PRN Reason: Nausea And Vomiting Prednisone (Deltasone) 10 mg PO QDAY [facility] Sodium Chloride (Sodium Chloride Flush Syringe 10 Ml) 10 ml IV BID [facility] Last Admin: 05/19/17 22:26 Dose: 10 ml Sodium Chloride (Sodium Chloride Flush Syringe 10 Ml) 10 ml IV PRN PRN PRN Reason: LINE FLUSH Last Admin: 05/19/17 06:46 Dose: 10 ml Review of Systems All systems: negative Exam - Constitutional Vitals: Temp Pulse Resp BP Pulse Ox 97.5 F L 76 18 132/71 99 05/20/17 11:05 05/20/17 13:45 05/20/17 11:05 05/20/17 13:45 05/20/17 08:06 General appearance: Present: no acute distress - EENT Eyes: Present: PERRL ENT: hearing intact - Neck Neck: Present: supple - Respiratory Respiratory effort: normal - Cardiovascular Rhythm: regular - Extremities Extremities: no ischemia Extremity abnormal: edema (LUE) - Abdominal General gastrointestinal: Present: deferred Male genitourinary: Present: deferred - Rectal Rectal Exam: deferred - Musculoskeletal Musculoskeletal: strength equal bilaterally - Psychiatric Psychiatric: appropriate mood/affect, cooperative - Neurologic Neurologic: no focal deficits Results - Labs CBC & Chem 7: 05/20/17 08:30 05/20/17 08:30 Labs: Abnormal lab results 05/20/17 05/20/17 05/20/17 Range/Units 02:46 08:30 08:30 RBC 3.29 L (3.65-5.03) M/mm3 Hgb 9.3 L (11.8-15.2) gm/dl Hct 27.7 L (35.5-45.6) % RDW 15.5 H (13.2-15.2) % [place] % (Auto) 8.0 H (0.0-7.3) % Lymph # 1.0 L (1.2-5.4) K/mm3 Seg Neutrophils % 77.3 H (40.0-70.0) % Chloride 97.2 L (98-107) mmol/L BUN 39 H (9-20) mg/dL Creatinine 5.3 H D (0.8-1.5) mg/dL Glucose 258 H (75-100) mg/dL POC Glucose 432 H (70-105) Calcium 7.9 L (8.4-10.2) mg/dL Albumin 3.2 L (3.9-5) g/dL - Imaging and Cardiology Venous US: image reviewed (arterial and venous) Assessment and Plan Patient will need CT of the left arm to evaluate the soft tissue. His arterial and venous ultrasounds are normal. His permcath is on the opposite of his symptomatic arm.
[2017-05-20] MEDS: NORCO 5/325 PO PRN (22:14)
[2017-05-20] MEDS: LATANOPROST 0.005% OU SCH (22:45)
[2017-05-21] MEDS: ISORDIL TITRADOSE PO SCH ×3 (06:38→22:04)
[2017-05-21] MEDS: APRESOLINE PO SCH ×3 (06:38→22:05)
[2017-05-21] MEDS: LASIX PO SCH (06:39)
[2017-05-21] MEDS: NEURONTIN PO SCH ×3 (06:39→22:02)
[2017-05-21] MEDS: ZOSYN/NS 2.25 GM/50ML 2.25 GM/50 ML BAG IV SCH ×3 (07:06→22:10)
[2017-05-21 07:11] LABS: Basophils # (Auto) 0.1 K/mm3 (0.0-0.1); Basophils % (Auto) 1.1 % (0.0-1.8); Eosinophils # (Auto) 0.1 K/mm3 (0.0-0.4); Eosinophils % (Auto) 1.5 % (0.0-4.3); Hematocrit 29.5 % (35.5-45.6); Hemoglobin 9.5 gm/dl (11.8-15.2); Lymphocytes # (Auto) 1.2 K/mm3 (1.2-5.4); Lymphocytes % (Auto) 20.8 % (13.4-35.0); Mean Corpuscular HGB Conc 32 % (32-34); Mean Corpuscular Hemoglobin 27 pg (28-32); Mean Corpuscular Volume 85 fl (84-94); Monocytes # (Auto) 0.5 K/mm3 (0.0-0.8); Monocytes % (Auto) 8.2 % (0.0-7.3); Platelet Count 215 K/mm3 (140-440); Red Blood Count 3.47 M/mm3 (3.65-5.03); Red Cell Distribution Width 15.3 % (13.2-15.2)
[2017-05-21 07:22] LABS: Albumin 3.2 g/dL (3.9-5)
--- NOTE | 2017-05-21 11:58 | Progress Note ---
Assessment and Plan Impression * End-stage renal disease on maintenance hemodialysis * Painful swelling of left elbow * Recent septic arthritis * Hypertension * Diabetes * Coronary artery disease * Anemia secondary to ESRD Recommendations * Continue dialysis on Mondays, Wednesdays and Fridays as outpatient * patient remains afebrile . Apparently no blood cultures were sent * On empiric antibiotic * Procrit with dialysis * Binders with diet * Adjust diet and meds for ESRD state * vascular surgery notes appreciated Subjective Date of service: 05/21/17 Principal diagnosis: chest pain, HF, septic Interval history: pt still complains of pain in his left elbow but getting better Objective - Vital Signs Vital signs: Vital Signs - 12hr 05/21/17 05/21/17 05/21/17 02:00 04:00 05:30 Temperature 98.6 F 98.5 F Pulse Rate 77 77 73 Respiratory 20 18 Rate Blood Pressure 81/42 84/36 Blood Pressure [Left] O2 Sat by Pulse 93 97 Oximetry 05/21/17 05/21/17 06:38 08:35 Temperature 98.6 F Pulse Rate 77 77 Respiratory 22 Rate Blood Pressure Blood Pressure 96/68 [Left] O2 Sat by Pulse 98 Oximetry - General Appearance General appearance: well-developed, well-nourished, appears stated age EENT: PERRL, mucous membranes moist Neck: no JVD, no thyromegaly, no carotid bruit, supple, other (right IJ permcath in place) Respiratory: Present: Clear to Ascultation Cardiology: regular, normal heart rate Gastrointestinal: normal, normoactive bowel sounds Integumentary: no rash - Lab 05/21/17 04:38 05/21/17 04:38 Most recent lab results Calcium 8.0 mg/dL (8.4-10.2) L 05/21/17 04:38
[2017-05-21] MEDS: ASPIRIN PO SCH (12:13)
[2017-05-21] MEDS: LOVENOX SUB-Q SCH (12:14)
[2017-05-21] MEDS: DELTASONE PO SCH (12:14)
[2017-05-21] MEDS: NORCO 5/325 PO PRN (12:15)
[2017-05-21] MEDS: SODIUM CHLORIDE FLUSH SYRINGE 10 ML IV SCH ×2 (12:15→22:07)
[2017-05-21] MEDS: HumuLIN R SUB-Q SCH ×3 (12:32→23:55)
--- NOTE | 2017-05-21 19:14 | Progress Note ---
Hospitalist Physical - Constitutional Vitals: Temp Pulse Resp BP Pulse Ox 98.5 F 75 20 110/56 96 05/21/17 15:48 05/21/17 15:48 05/21/17 15:48 05/21/17 15:48 05/21/17 15:48 General appearance: Present: no acute distress Results - Labs CBC & Chem 7: 05/21/17 04:38 05/21/17 04:38 Labs: Laboratory Last Values WBC 5.7 K/mm3 (4.5-11.0) 05/21/17 04:38 RBC 3.47 M/mm3 (3.65-5.03) L 05/21/17 04:38 Hgb 9.5 gm/dl (11.8-15.2) L 05/21/17 04:38 Hct 29.5 % (35.5-45.6) L 05/21/17 04:38 MCV 85 fl (84-94) 05/21/17 04:38 MCH 27 pg (28-32) L 05/21/17 04:38 MCHC 32 % (32-34) 05/21/17 04:38 RDW 15.3 % (13.2-15.2) H 05/21/17 04:38 Plt Count 215 K/mm3 (140-440) 05/21/17 04:38 Lymph % (Auto) 20.8 % (13.4-35.0) 05/21/17 04:38 Schleicher % (Auto) 8.2 % (0.0-7.3) H 05/21/17 04:38 Eos % (Auto) 1.5 % (0.0-4.3) 05/21/17 04:38 Baso % (Auto) 1.1 % (0.0-1.8) 05/21/17 04:38 Lymph # 1.2 K/mm3 (1.2-5.4) 05/21/17 04:38 Schleicher # 0.5 K/mm3 (0.0-0.8) 05/21/17 04:38 Eos # 0.1 K/mm3 (0.0-0.4) 05/21/17 04:38 Baso # 0.1 K/mm3 (0.0-0.1) 05/21/17 04:38 Seg Neutrophils % 68.4 % (40.0-70.0) 05/21/17 04:38 Seg Neutrophils # 3.9 K/mm3 (1.8-7.7) 05/21/17 04:38 PT 12.5 Sec. (12.2-14.9) 05/18/17 17:52 INR 0.89 (0.87-1.13) 05/18/17 17:52 APTT 33.8 Sec. (24.2-36.6) 05/18/17 17:52 Sodium 140 mmol/L (137-145) 05/21/17 04:38 Potassium 3.5 mmol/L (3.6-5.0) L 05/21/17 04:38 Chloride 96.4 mmol/L (98-107) L 05/21/17 04:38 Carbon Dioxide 26 mmol/L (22-30) 05/21/17 04:38 Anion Gap 21 mmol/L 05/21/17 04:38 BUN 23 mg/dL (9-20) H 05/21/17 04:38 Creatinine 4.6 mg/dL (0.8-1.5) H 05/21/17 04:38 Estimated GFR 16 ml/min 05/21/17 04:38 BUN/Creatinine Ratio 5 % 05/21/17 04:38 Glucose 273 mg/dL (75-100) H 05/21/17 04:38 POC Glucose 399 (70-105) H 05/20/17 20:49 Calcium 8.0 mg/dL (8.4-10.2) L 05/21/17 04:38 Total Bilirubin 0.30 mg/dL (0.1-1.2) 05/21/17 04:38 AST 14 units/L (5-40) 05/21/17 04:38 ALT 11 units/L (7-56) 05/21/17 04:38 Alkaline Phosphatase 73 units/L (35-129) 05/21/17 04:38 Total Creatine Kinase 165 units/L (55-170) 05/19/17 06:36 CK-MB (CK-2) 1.6 ng/mL (0.0-4.0) 05/19/17 06:36 CK-MB (CK-2) Rel Index 0.9 (0-4) 05/19/17 06:36 Troponin T 0.118 ng/mL (0.00-0.029) H* 05/19/17 06:36 Total Protein 6.8 g/dL (6.3-8.2) 05/21/17 04:38 Albumin 3.2 g/dL (3.9-5) L 05/21/17 04:38 Albumin/Globulin Ratio 0.9 % 05/21/17 04:38 Triglycerides 277 mg/dL (2-149) H 05/19/17 00:10 Cholesterol 150 mg/dL (50-199) 05/19/17 00:10 LDL Cholesterol Direct 78 mg/dL (50-130) 05/19/17 00:10 HDL Cholesterol 24 mg/dL (40-59) L 05/19/17 00:10 Cholesterol/HDL Ratio 6.25 % 05/19/17 00:10
[2017-05-21] MEDS: COREG PO SCH ×2 (22:01→22:03)
--- NOTE | 2017-05-21 22:49 | Cat Scan Report ---
FINAL REPORT EXAM: CT LT UPPER EXTREMITY CLINICAL INDICATIONS: LEFT ARM SWELLING FINDINGS: Contrast-enhanced CTA of the left arm was performed. sagittal and coronal three-dimensional reformatted images were generated. There is mild cardiomegaly. The ascending thoracic aorta is normal in size. The right brachiocephalic, left common carotid and left subclavian arteries are widely patent. The left axillary, brachial and radial and ulnar arteries appear widely patent. There is subcutaneous stranding of the ulnar aspect of the proximal forearm which is likely cellulitis. No soft tissue abscess is seen. There is no evidence of deep soft tissue infection. IMPRESSION: THE LEFT ARM ARTERIAL VASCULATURE APPEARS WIDELY PATENT SUSPECTED CELLULITIS OF PROXIMAL, ULNAR-SIDED SUBCUTANEOUS TISSUES OF PROXIMAL FOREARM. NO ABSCESS IS SEEN
[2017-05-21] MEDS: LATANOPROST 0.005% OU SCH (22:59)
[2017-05-22] MEDS: LASIX PO SCH ×2 (07:08→17:57)
[2017-05-22] MEDS: NEURONTIN PO SCH ×3 (07:09→21:45)
[2017-05-22] MEDS: ISORDIL TITRADOSE PO SCH ×3 (07:11→21:46)
[2017-05-22] MEDS: ZOSYN/NS 2.25 GM/50ML 2.25 GM/50 ML BAG IV SCH ×3 (07:11→21:45)
[2017-05-22] MEDS: APRESOLINE PO SCH ×3 (07:11→21:46)
--- NOTE | 2017-05-22 10:12 | Progress Note ---
Assessment and Plan Impression * End-stage renal disease on maintenance hemodialysis * Painful swelling of left elbow * Recent septic arthritis * Hypertension * Diabetes * Coronary artery disease * Anemia secondary to ESRD Recommendations * Continue dialysis on Mondays, Wednesdays and Fridays as outpatient * patient remains afebrile . Apparently no blood cultures were sent * On empiric antibiotic * CT scan showing cellulitis left upper fore-arm * Procrit with dialysis * Binders with diet * Adjust diet and meds for ESRD state Subjective Date of service: 05/22/17 Principal diagnosis: chest pain, HF, septic Interval history: pt still complains of pain in his left elbow but getting better Objective - Vital Signs Vital signs: Vital Signs - 12hr 05/22/17 05/22/17 05/22/17 00:21 04:57 08:09 Temperature 98.5 F 98.5 F 97.6 F Pulse Rate 69 70 67 Respiratory 20 50 H 20 Rate Blood Pressure 112/51 97/43 120/56 O2 Sat by Pulse 96 100 99 Oximetry - General Appearance General appearance: well-developed, well-nourished, appears stated age EENT: PERRL, mucous membranes moist Neck: no JVD, no thyromegaly, no carotid bruit, supple, other (right IJ permcath ) Respiratory: Present: Clear to Ascultation Cardiology: regular, normal heart rate, S1S2, no murmurs Gastrointestinal: normal, normoactive bowel sounds Integumentary: other (left elbow swelling improving ) - Lab 05/21/17 04:38 05/21/17 04:38 Most recent lab results Calcium 8.0 mg/dL (8.4-10.2) L 05/21/17 04:38
--- NOTE | 2017-05-22 10:19 | Progress Note ---
Assessment and Plan Patient with left arm cellulitis involving the forearm. His been afebrile with non-elevated white count and no positive cultures. Would consider continuing empiric antibiotics as his symptoms appear to be resolving with antibiotics therapy. Subjective Date of service: 05/22/17 Principal diagnosis: chest pain, HF, septic Interval history: A CT reviewed. No fluid collections involving the joint. The patient does have cellulitic changes to his forearm. He states that his arm is feeling somewhat better. Objective - Constitutional Vitals: Vital Signs - 12hr 05/22/17 05/22/17 05/22/17 00:21 04:57 08:09 Temperature 98.5 F 98.5 F 97.6 F Pulse Rate 69 70 67 Respiratory 20 50 H 20 Rate Blood Pressure 112/51 97/43 120/56 O2 Sat by Pulse 96 100 99 Oximetry General appearance: Present: no acute distress - EENT Eyes: PERRL ENT: hearing intact - Neck Neck: supple, normal ROM - Respiratory Respiratory effort: normal - Breasts Breasts: deferred Extremities: no ischemia Extremity abnormal: edema - Gastrointestinal General gastrointestinal: Present: deferred - Genitourinary Male genitourinary: deferred - Psychiatric Psychiatric: appropriate mood/affect, cooperative - Labs CBC & Chem 7: 05/21/17 04:38 05/21/17 04:38 Labs: Abnormal lab results 05/21/17 05/21/17 05/21/17 Range/Units 11:18 15:54 23:02 POC Glucose 307 H 323 H 317 H (70-105)
[2017-05-22] MEDS: HumuLIN R SUB-Q SCH ×3 (12:09→21:40)
[2017-05-22] MEDS: SODIUM CHLORIDE FLUSH SYRINGE 10 ML IV SCH ×2 (15:10→21:48)
[2017-05-22] MEDS: ASPIRIN PO SCH (15:10)
[2017-05-22] MEDS: LOVENOX SUB-Q SCH (15:10)
[2017-05-22] MEDS: DELTASONE PO SCH (15:11)
[2017-05-22] MEDS: COREG PO SCH ×2 (15:14→21:47)
[2017-05-22] MEDS: NORCO 5/325 PO PRN ×2 (15:16→22:42)
[2017-05-22 16:13] LABS: Albumin 3.1 g/dL (3.9-5); Calcium 7.6 mg/dL (8.4-10.2)
[2017-05-22] MEDS: LATANOPROST 0.005% OU SCH (22:12)
[2017-05-23] MEDS: ZOSYN/NS 2.25 GM/50ML 2.25 GM/50 ML BAG IV SCH (05:40)
[2017-05-23] MEDS: LASIX PO SCH ×2 (05:41→17:05)
[2017-05-23] MEDS: NEURONTIN PO SCH ×3 (05:41→21:54)
[2017-05-23] MEDS: ISORDIL TITRADOSE PO SCH ×4 (05:41→21:55)
[2017-05-23] MEDS: APRESOLINE PO SCH ×3 (05:43→21:54)
--- NOTE | 2017-05-23 09:49 | Progress Note ---
Assessment and Plan - Patient Problems (1) ESRD (end stage renal disease) Current Visit: Yes Status: Acute Plan to address problem: HD on M//. Pt with left elbow pain with cellulitis. ID consult reviewed. Antibiotics per ID, adjust dosing per renal function. Nutrition support. (2) Cellulitis Current Visit: Yes Status: Acute (3) Septic arthritis Current Visit: Yes Status: Acute Qualifiers: Septic arthritis location: elbow Septic arthritis organism: due to unspecified organism Laterality: left Qualified Code(s): M00.9 - Pyogenic arthritis, unspecified (4) Diabetes Current Visit: No Status: Chronic Qualifiers: Diabetes mellitus type: type 2 Diabetes mellitus complication status: with hyperglycemia (5) HTN (hypertension) Current Visit: No Status: Chronic (6) Anemia in CKD (chronic kidney disease) Current Visit: Yes Status: Chronic Subjective Date of service: 05/23/17 Principal diagnosis: chest pain, HF, septic Interval history: sleeping, but arousable, not in distress Objective - Vital Signs Vital signs: Vital Signs - 12hr 05/23/17 05/23/17 05/23/17 00:24 03:00 04:13 Temperature 97.8 F 97.8 F Pulse Rate 74 72 63 Respiratory 22 20 Rate Blood Pressure 128/61 Blood Pressure 112/60 [Left] O2 Sat by Pulse 98 99 Oximetry 05/23/17 08:11 Temperature 97.7 F Pulse Rate 61 Respiratory 16 Rate Blood Pressure Blood Pressure 120/58 [Left] O2 Sat by Pulse 98 Oximetry - General Appearance General appearance: well-developed EENT: mucous membranes moist Neck: no JVD Respiratory: Present: Clear to Ascultation Cardiology: regular Gastrointestinal: normoactive bowel sounds - Lab 05/21/17 04:38 05/22/17 14:43 Most recent lab results Calcium 7.6 mg/dL (8.4-10.2) L 05/22/17 14:43
[2017-05-23] MEDS: ASPIRIN PO SCH (09:57)
[2017-05-23] MEDS: DELTASONE PO SCH (09:57)
[2017-05-23] MEDS: LOVENOX SUB-Q SCH (09:58)
[2017-05-23] MEDS: COREG PO SCH ×2 (09:59→21:54)
[2017-05-23] MEDS: SODIUM CHLORIDE FLUSH SYRINGE 10 ML IV SCH (10:01)
[2017-05-23] MEDS: HumuLIN R SUB-Q SCH ×4 (10:03→23:31)
[2017-05-23] MEDS: PROCRIT IV PRN (14:11)
--- NOTE | 2017-05-23 14:38 | Consultation ---
History of Present Illness - Reason for Consult Consult date: 05/23/17 left arm cellulitis Requesting physician: GREG VIRK - History of Present Illness 66 YO Male with history of DE, HTN, CHF, DM, DVT, PE, GERD, ESRD on HD (M,W,F), OA, Asthma,Gout, COPD, well known to ID due to recent admission 04/11-04/18/17 when he was found to have presumed Left elbow septic arthritis due to MRSA and ORAL SURGERY TECHNICIAN septicemia. Patient presented left elbow pain and swelling for the past 1 month. he fell hitting his elbows on the floor a month before admission. Pt underwent arthrocentesis in ED and IV vancomycin was initiated. Elbow x-ray showed no abnormality identifies. Synovial fluid + [place] [address]. Synovial culture +MRSA. Blood cultures grew ORAL SURGERY TECHNICIAN 2 of 4 bottles. HD permcath placed a month before admit. TTE no vegetations. ID requested ortho evaluation. Ortho stated no indication for surgery. Patient was discharged on vancomycin 1 g IV q48h on HD total 4 weeks until 05/12/17 to cover MRSA elbow infection. Unfortunately, patient was readmitted due to worsening left elbow pain for 24 hours, throbbing, 10/10. Patient reports that the day of the last discharge he heated his left elbow again gains a chair. Since then pain has been worsening 8 out of 10. He reports a fever 101 at home. He said that he received IV antibiotics via HD until last month. Denies any recent cough, shortness of breath, nausea, vomiting, diarrhea. Denies any sick contacts. In the emergency room initial temperature was 97.8, heart rate 109, respiration 22, blood pressure 150/85, O2 sat 95. Initial white count 5.4. Hemoglobin 10.3. Platelets 204. Chest x-ray was negative. CT of the left arm show possible cellulitis in the proximal ulnar area. Shows soft tissue swelling. No abscess seen. ID consulted for further management of possible left upper extremity cellulitis. Microbiology: Blood cultures: 04/11 CNG 03/18 bottles 04/15 neg Repiratory cultures: Urine cultures Current Antimicrobials: Zosyn 05/19 Previous Antimicrobials: Vancomycin 04/11-05/12 Past History Past Medical History: CAD, COPD, diabetes, dialysis, heart failure, hypertension Past Surgical History: Other (history of PermCath placement) Social history: no significant social history Family history: no significant family history Medications and Allergies Allergies Allergy/AdvReac Type Severity Reaction Status Date / Time No Known Allergies Allergy Verified 04/11/17 08:05 Home Medications Medication Instructions Recorded Confirmed Last Taken Type Latanoprost 1 drop OU QHS 04/11/13 05/20/17 1 Day Ago History ~05/19/17 Aspirin [Aspirin TAB] 325 mg PO QDAY #30 tablet 10/29/16 05/20/17 1 Day Ago Rx ~05/19/17 Gabapentin [Neurontin] 300 mg PO Q8H #90 capsule 10/29/16 05/20/17 1 Day Ago Rx ~05/19/17 AtorvaSTATin [Lipitor] 40 mg PO QHS #30 tablet 03/14/17 05/20/17 1 Day Ago Rx ~05/19/17 Carvedilol [Coreg] 25 mg PO BID #60 tablet 03/14/17 05/20/17 1 Day Ago Rx ~05/19/17 Furosemide [Lasix TAB] 40 mg PO 0600,1800 #60 tablet 03/14/17 05/20/17 1 Day Ago Rx ~05/19/17 Insulin NPH Hum/Reg Insulin Hm 36 unit SQ BID 30 Days vial 03/14/17 05/20/17 1 Day Ago Rx [HumuLIN 70-30 Vial] ~05/19/17 Isosorbide Dinitrate [Isordil 10 mg PO Q8HR #90 tablet 03/14/17 05/20/17 1 Day Ago Rx Titradose] ~05/19/17 hydrALAZINE [Apresoline TAB] 50 mg PO Q8HR #180 tablet 03/14/17 05/20/17 1 Day Ago Rx ~05/19/17 Active Meds: Active Medications Acetaminophen (Tylenol) 650 mg PO Q4H PRN PRN Reason: Pain MILD(1-3)/Fever >100.5/TANG Acetaminophen/Hydrocodone Bitart (Freeland 5/325) 1 each PO Q6H PRN PRN Reason: Pain, Moderate (4-6) Last Admin: 05/22/17 22:42 Dose: 1 each Aspirin (Aspirin) 325 mg PO QDAY [facility] Last Admin: 05/23/17 09:57 Dose: 325 mg Atorvastatin Calcium (Lipitor) 40 mg PO QHS [facility] Last Admin: 05/22/17 21:45 Dose: 40 mg Carvedilol (Coreg) 25 mg PO BID [facility] Last Admin: 05/23/17 09:59 Dose: Not Given Dextrose (D50w (25gm) Syringe) 50 ml IV PRN PRN PRN Reason: Hypoglycemia Diphenhydramine HCl (Benadryl) 25 mg PO Q6H PRN PRN Reason: Itching Last Admin: 05/19/17 18:16 Dose: 25 mg Enoxaparin Sodium (Lovenox) 30 mg SUB-Q QDAY [facility] Last Admin: 05/23/17 09:58 Dose: 30 mg Epoetin Lui (Procrit) 10,000 unit IV [place] PRN PRN Reason: hemodialysis Last Admin: 05/23/17 14:11 Dose: 10,000 unit Furosemide (Lasix) 40 mg PO 0600,1800 [facility] Last Admin: 05/23/17 05:41 Dose: 40 mg Gabapentin (Neurontin) 300 mg PO Q8HR [facility] Last Admin: 05/23/17 05:41 Dose: 300 mg Heparin Sodium (Porcine) (Heparin) 5,000 unit IV [place] PRN PRN Reason: hemodialysis Last Admin: 05/20/17 15:05 Dose: 5,000 unit Hydralazine HCl (Apresoline) 50 mg PO Q8HR [facility] Last Admin: 05/23/17 05:43 Dose: Not Given Piperacillin Sod/Tazobactam Sod (Zosyn/Ns 2.25 Gm/50ml) 2.25 gm in 50 mls @ 100 mls/hr IV Q8HR [facility]; Protocol Last Admin: 05/23/17 05:40 Dose: 100 mls/hr Sodium Chloride (Nacl 0.9%) 100 mls @ 999 mls/hr IV [place] PRN PRN Reason: Hypotension Insulin Human Isoph/Insulin Regular (Humulin 70/30) 40 unit SUB-Q BIDDIAB [facility] Last Admin: 05/23/17 10:02 Dose: 40 unit Insulin Human Regular (Humulin R) 0 units SUB-Q ACHS [facility]; Protocol Last Admin: 05/23/17 10:03 Dose: 4 units Isosorbide Dinitrate (Isordil Titradose) 10 mg PO Q8HR [facility] Last Admin: 05/23/17 05:42 Dose: Not Given Latanoprost (Latanoprost 0.005%) 1 drops OU QHS [facility] Last Admin: 05/22/17 22:12 Dose: 1 drops Ondansetron HCl (Zofran) 4 mg IV Q8H PRN PRN Reason: Nausea And Vomiting Prednisone (Deltasone) 10 mg PO QDAY [facility] Last Admin: 05/23/17 09:57 Dose: 10 mg Sodium Chloride (Sodium Chloride Flush Syringe 10 Ml) 10 ml IV BID [facility] Last Admin: 05/23/17 10:01 Dose: 10 ml Sodium Chloride (Sodium Chloride Flush Syringe 10 Ml) 10 ml IV PRN PRN PRN Reason: LINE FLUSH Last Admin: 05/19/17 06:46 Dose: 10 ml Review of Systems All systems: negative (as per HPI rest of 10 point review of systems negative.) Physical Examination - Physical Exam Narrative exam: General appearance: Alert in NAD, conversant Eyes: anicteric sclerae, moist conjunctivae; no lid-lag; PERRLA HENT: Atraumatic; oropharynx clear with moist mucous membranes and no mucosal ulcerations/no oral thrush; normal hard and soft palate. Normal external ears. Neck: Trachea midline; supple, no thyromegaly or lymphadenopathy Lungs: CTA, with normal respiratory effort and no intercostal retractions CV: RRR Abdomen: Soft, non-tender; no masses or hepatosplenomegaly Extremities: Left forearm mild edema close to the elbow. Skin: Normal temperature, turgor and texture; no rash, ulcers or subcutaneous nodules Psych: Appropriate affect, alert and oriented to person, place and time. Neuro: alert and oriented x 3. Moving all extermities Lines: Right subclavian HD cath no edema, no erythema, no drainage. - Constitutional Vitals: Vital Signs Temp Pulse Resp BP Pulse Ox 97.5 F L 52 L 18 151/86 98 05/23/17 11:05 05/23/17 13:15 05/23/17 11:05 05/23/17 13:15 05/23/17 10:00 Temperature -Last 24 Hours Temperature 97.5 F Temperature 97.7 F Temperature 97.8 F Temperature 97.8 F Temperature 97.7 F Results - Labs CBC & Chem 7: 05/21/17 04:38 05/22/17 14:43 Labs: Abnormal lab results 05/22/17 05/23/17 Range/Units 14:43 05:57 Potassium 3.5 L (3.6-5.0) mmol/L Chloride 94.3 L (98-107) mmol/L BUN 40 H (9-20) mg/dL Creatinine 6.3 H (0.8-1.5) mg/dL Glucose 244 H (75-100) mg/dL POC Glucose 291 H (70-105) Calcium 7.6 L (8.4-10.2) mg/dL Albumin 3.1 L (3.9-5) g/dL Assessment and Plan Assessment: 1) Presumed SIRS: Present on admission, manifested by fever at home, tachycardia. Etiology unclear, should r/o persistent left elbow septic arthritis +/- cellulitis 2) Recent left elbow septic arthritis due to MRSA: -[place]ovial fluid [place] [address] -Synovial culture +MRSA. -Ortho consult no indication for surgery -CRP=7/6 on 04/11 -S/P vancomycin 1 g IV q48h on HD total 4 weeks until 05/12/17 -Repeat CT of the left arm show possible cellulitis in the proximal ulnar area. Shows soft tissue swelling. No abscess seen. 3) Recent ORAL SURGERY TECHNICIAN septicemia: -04/11/17 Blood cultures ORAL SURGERY TECHNICIAN 2 of 4 bottles -04/15/17 Blood cultures negative -TTE no vegetations. -HD permcath placed in Mar 2017 4) CAD / DE / CHF / HTN 5) DM 6) DVT/PE 7) ESRD on HD (M,W,F) 8) COPD Plan: -obtain blood cultures -obtain C-reactive protein (CRP) -Ortho consult in view of worsening left elbow pain after stopping IV antibiotics ? persistent joint infection -stop zosyn -continue vancomycin (received 1 dose in the ED) renally dosed -add cefazolin -pain management Thank you for your consultation, will follow up with you. Page Gupta MD Infectious Diseases Specialist [facility], [place] [facility] M [phone] O [phone]
[2017-05-23] MEDS ORDERED: VANCOMYCIN PHARMACY TO DOSE IV SCH (15:00)
[2017-05-23] MEDS ORDERED: VANCOMYCIN VIAL 1,000 MG in NACL 0.9% 100 ML IV PRN (15:00)
[2017-05-23] MEDS ORDERED: ceFAZolin 2 GM in NACL 0.9% 100 ML IV SCH (16:00)
[2017-05-23] MEDS ORDERED: cefTRIAXone 2 GM in NACL 0.9% 20 ML IV SCH (16:30)
[2017-05-23] MEDS: HEPARIN IV PRN (17:39)
[2017-05-23] MEDS: ceFAZolin 2 GM in NACL 0.9% 20 ML IV SCH (17:45)
[2017-05-23] MEDS ORDERED: VANCOMYCIN 2,000 MG in NACL 0.9% 500 ML 500 ML IV ONE (18:00)
[2017-05-23] MEDS: LATANOPROST 0.005% OU SCH (21:52)
[2017-05-24] MEDS: APRESOLINE PO SCH ×4 (05:41→22:56)
[2017-05-24] MEDS: LASIX PO SCH ×2 (05:42→18:32)
[2017-05-24] MEDS: NEURONTIN PO SCH ×3 (05:42→22:59)
[2017-05-24] MEDS: ISORDIL TITRADOSE PO SCH ×3 (05:44→23:00)
[2017-05-24] MEDS: SODIUM CHLORIDE FLUSH SYRINGE 10 ML IV SCH ×3 (06:41→22:59)
[2017-05-24] MEDS: HumuLIN R SUB-Q SCH ×4 (08:48→22:57)
[2017-05-24] MEDS: LOVENOX SUB-Q SCH (09:03)
[2017-05-24] MEDS: DELTASONE PO SCH (09:03)
[2017-05-24] MEDS: ASPIRIN PO SCH (09:03)
[2017-05-24] MEDS: COREG PO SCH ×2 (09:04→22:58)
--- NOTE | 2017-05-24 09:57 | Progress Note ---
Assessment and Plan - Patient Problems (1) ESRD (end stage renal disease) Current Visit: Yes Status: Acute Plan to address problem: HD on M/W/F. Pt with left elbow pain with cellulitis. ID notes reviewed. Antibiotics per ID, adjust dosing per renal function. Nutrition support. (2) Cellulitis Current Visit: Yes Status: Acute (3) Septic arthritis Current Visit: Yes Status: Acute Qualifiers: Septic arthritis location: elbow Septic arthritis organism: due to unspecified organism Laterality: left Qualified Code(s): M00.9 - Pyogenic arthritis, unspecified (4) Diabetes Current Visit: No Status: Chronic Qualifiers: Diabetes mellitus type: type 2 Diabetes mellitus complication status: with hyperglycemia (5) HTN (hypertension) Current Visit: No Status: Chronic Plan to address problem: BP under control. (6) Anemia in CKD (chronic kidney disease) Current Visit: Yes Status: Chronic Subjective Date of service: 05/24/17 Principal diagnosis: chest pain, HF, septic Interval history: sleeping, not in distress Objective - Vital Signs Vital signs: Vital Signs - 12hr 05/24/17 05/24/17 05/24/17 00:06 04:07 04:24 Temperature 98.8 F 98.6 F Pulse Rate 81 81 81 Respiratory 20 20 Rate Respiratory 18 Rate [chest] Blood Pressure 97/54 115/64 O2 Sat by Pulse 100 98 Oximetry 05/24/17 05/24/17 05/24/17 05:41 08:05 09:04 Temperature 98.7 F Pulse Rate 82 78 76 Respiratory 16 Rate Respiratory Rate [chest] Blood Pressure 115/64 122/61 101/44 O2 Sat by Pulse 98 Oximetry - General Appearance General appearance: well-developed EENT: mucous membranes moist Neck: no JVD Respiratory: Present: Clear to Ascultation Cardiology: regular Gastrointestinal: normoactive bowel sounds Musculoskeletal: other (left elbow-same) - Lab 05/21/17 04:38 05/22/17 14:43 Most recent lab results Calcium 7.6 mg/dL (8.4-10.2) L 05/22/17 14:43
--- NOTE | 2017-05-24 10:44 | Progress Note ---
Assessment and Plan Assessment: 1) Presumed SIRS: Present on admission, manifested by fever at home, tachycardia. Etiology unclear, should r/o persistent left elbow septic arthritis +/- cellulitis. 2) Recent left elbow septic arthritis due to MRSA: -[place] fluid [place] [address] -Synovial culture +MRSA. -Ortho consult no indication for surgery -CRP=7/6 on 04/11 -S/P vancomycin 1 g IV q48h on HD total 4 weeks until 05/12/17 -Repeat CT of the left arm showed possible cellulitis in the proximal ulnar area. Shows soft tissue swelling. No abscess seen. -As per ortho on 05/19 no evidence of septic arthritis. -Left elbow pain is improved. 3) Recent CREDIT OFFICER septicemia: -04/11/17 Blood cultures CREDIT OFFICER 2 of 4 bottles. -04/15/17 Blood cultures negative. -TTE no vegetations. -HD permcath placed in Mar 2017. -Blood cx 05/23 pending 4) CAD / MD / CHF / HTN 5) DM 6) DVT/PE 7) ESRD on HD (M,W,F) 8) COPD Plan: -Will f/u blood cultures. -continue vancomycin renally dosed. -Continue cefazolin. -pain management. -Will follow up with you. Tanesha Mosquera MD Infectious Diseases Specialist [facility] C [phone] Subjective Date of service: 05/24/17 Principal diagnosis: chest pain, HF, septic Interval history: Afebrile. Left elbow pain is improved. Denies cough, SOB, N/V/D, CP, abdominal pain. Microbiology: Blood cultures: 04/11 Coagulase Negative Staph 03/18 bottles 04/15 neg 05/23 pending Current Antimicrobials: Cefazolin 05/23- IV vancomycin 05/23- Previous Antimicrobials: Vancomycin 04/11-05/12 Zosyn 05/19-05/22 Objective - Exam Narrative Exam: General appearance: Alert in NAD, conversant Eyes: anicteric sclerae, moist conjunctivae; PERRLA HENT: Atraumatic; oropharynx clear, with moist mucous membranes and no mucosal ulcerations/no oral thrush; normal hard and soft palate. Normal external ears. Neck: Trachea midline; supple, no thyromegaly or lymphadenopathy Lungs: CTA, with normal respiratory effort and no intercostal retractions CV: S1,S2. Abdomen: Soft, non-tender; no masses or hepatosplenomegaly Extremities: Left forearm mild edema close to the elbow. No open wounds or erythema. Skin: Normal temperature, turgor and texture; no rash, ulcers or subcutaneous nodules Psych: Appropriate affect, alert and oriented to person, place and time. Neuro: alert and oriented x 3. Moving all extremities Lines: Right subclavian HD cath - no edema, no erythema, no drainage. - Constitutional Vitals: Vital Signs Temp Pulse Resp BP Pulse Ox 98.7 F 76 16 101/44 98 05/24/17 08:05 05/24/17 09:04 05/24/17 08:05 05/24/17 09:04 05/24/17 08:05 Temperature -Last 24 Hours Temperature 98.7 F Temperature 98.6 F Temperature 98.8 F Temperature 97.7 F Temperature 98.1 F Temperature 97.7 F Temperature 97.5 F - Labs CBC & Chem 7: 05/21/17 04:38 05/22/17 14:43 Labs: Abnormal lab results 05/23/17 05/23/17 05/24/17 Range/Units 16:37 21:16 05:55 POC Glucose 203 H 157 H (70-105) C-Reactive Protein 4.20 H (0.00-1.30) mg/dL
--- NOTE | 2017-05-24 15:30 | Progress Note ---
Hospitalist Physical - Constitutional Vitals: Temp Pulse Resp BP Pulse Ox 98.7 F 71 16 117/56 97 05/24/17 12:23 05/24/17 15:22 05/24/17 12:23 05/24/17 15:22 05/24/17 12:23 General appearance: Present: no acute distress Results - Labs CBC & Chem 7: 05/21/17 04:38 05/22/17 14:43 Labs: Laboratory Last Values WBC 5.7 K/mm3 (4.5-11.0) 05/21/17 04:38 RBC 3.47 M/mm3 (3.65-5.03) L 05/21/17 04:38 Hgb 9.5 gm/dl (11.8-15.2) L 05/21/17 04:38 Hct 29.5 % (35.5-45.6) L 05/21/17 04:38 MCV 85 fl (84-94) 05/21/17 04:38 MCH 27 pg (28-32) L 05/21/17 04:38 MCHC 32 % (32-34) 05/21/17 04:38 RDW 15.3 % (13.2-15.2) H 05/21/17 04:38 Plt Count 215 K/mm3 (140-440) 05/21/17 04:38 Lymph % (Auto) 20.8 % (13.4-35.0) 05/21/17 04:38 [place] % (Auto) 8.2 % (0.0-7.3) H 05/21/17 04:38 Eos % (Auto) 1.5 % (0.0-4.3) 05/21/17 04:38 Baso % (Auto) 1.1 % (0.0-1.8) 05/21/17 04:38 Lymph # 1.2 K/mm3 (1.2-5.4) 05/21/17 04:38 [place] # 0.5 K/mm3 (0.0-0.8) 05/21/17 04:38 Eos # 0.1 K/mm3 (0.0-0.4) 05/21/17 04:38 Baso # 0.1 K/mm3 (0.0-0.1) 05/21/17 04:38 Seg Neutrophils % 68.4 % (40.0-70.0) 05/21/17 04:38 Seg Neutrophils # 3.9 K/mm3 (1.8-7.7) 05/21/17 04:38 PT 12.5 Sec. (12.2-14.9) 05/18/17 17:52 INR 0.89 (0.87-1.13) 05/18/17 17:52 APTT 33.8 Sec. (24.2-36.6) 05/18/17 17:52 Sodium 140 mmol/L (137-145) 05/22/17 14:43 Potassium 3.5 mmol/L (3.6-5.0) L 05/22/17 14:43 Chloride 94.3 mmol/L (98-107) L 05/22/17 14:43 Carbon Dioxide 25 mmol/L (22-30) 05/22/17 14:43 Anion Gap 24 mmol/L 05/22/17 14:43 BUN 40 mg/dL (9-20) H 05/22/17 14:43 Creatinine 6.3 mg/dL (0.8-1.5) H 05/22/17 14:43 Estimated GFR 11 ml/min 05/22/17 14:43 BUN/Creatinine Ratio 6 % 05/22/17 14:43 Glucose 244 mg/dL (75-100) H 05/22/17 14:43 POC Glucose 145 (70-105) H 05/24/17 12:33 Calcium 7.6 mg/dL (8.4-10.2) L 05/22/17 14:43 Total Bilirubin 0.20 mg/dL (0.1-1.2) 05/22/17 14:43 AST 11 units/L (5-40) 05/22/17 14:43 ALT 9 units/L (7-56) 05/22/17 14:43 Alkaline Phosphatase 72 units/L (35-129) 05/22/17 14:43 Total Creatine Kinase 165 units/L (55-170) 05/19/17 06:36 CK-MB (CK-2) 1.6 ng/mL (0.0-4.0) 05/19/17 06:36 CK-MB (CK-2) Rel Index 0.9 (0-4) 05/19/17 06:36 Troponin T 0.118 ng/mL (0.00-0.029) H* 05/19/17 06:36 C-Reactive Protein 4.20 mg/dL (0.00-1.30) H 05/23/17 16:37 Total Protein 6.5 g/dL (6.3-8.2) 05/22/17 14:43 Albumin 3.1 g/dL (3.9-5) L 05/22/17 14:43 Albumin/Globulin Ratio 0.9 % 05/22/17 14:43 Triglycerides 277 mg/dL (2-149) H 05/19/17 00:10 Cholesterol 150 mg/dL (50-199) 05/19/17 00:10 LDL Cholesterol Direct 78 mg/dL (50-130) 05/19/17 00:10 HDL Cholesterol 24 mg/dL (40-59) L 05/19/17 00:10 Cholesterol/HDL Ratio 6.25 % 05/19/17 00:10
[2017-05-24] MEDS: ceFAZolin 2 GM in NACL 0.9% 20 ML IV SCH (18:32)
[2017-05-24] MEDS: LATANOPROST 0.005% OU SCH (23:18)
[2017-05-24] MEDS: NORCO 5/325 PO PRN (23:31)
--- NOTE | 2017-05-25 08:25 | Progress Note ---
Assessment and Plan - Patient Problems (1) ESRD (end stage renal disease) Current Visit: Yes Status: Chronic Plan to address problem: HD on M/W/. Pt with left elbow pain with cellulitis. ID notes reviewed. Antibiotics per ID, adjust dosing per renal function. Nutrition support. Pt was seen and examined durind dialysis today around 8.50AM.BP-137/78,P-75, afebrile (2) Cellulitis Current Visit: Yes Status: Acute (3) Septic arthritis Current Visit: Yes Status: Acute Qualifiers: Septic arthritis location: elbow Septic arthritis organism: due to unspecified organism Laterality: left Qualified Code(s): M00.9 - Pyogenic arthritis, unspecified (4) Diabetes Current Visit: No Status: Chronic Qualifiers: Diabetes mellitus type: type 2 Diabetes mellitus complication status: with hyperglycemia (5) HTN (hypertension) Current Visit: No Status: Chronic (6) Anemia in CKD (chronic kidney disease) Current Visit: Yes Status: Chronic Subjective Date of service: 05/25/17 Principal diagnosis: chest pain, HF, septic Interval history: alert, oriented, currently on HD. Pain in left elbow-same Objective - Vital Signs Vital signs: Vital Signs - 12hr 05/24/17 05/24/17 05/25/17 20:40 23:31 00:11 Temperature 98.5 F Pulse Rate 83 76 Respiratory 20 18 Rate Respiratory 18 Rate [chest] Blood Pressure 102/46 O2 Sat by Pulse 96 Oximetry 05/25/17 05:10 Temperature 98.2 F Pulse Rate 69 Respiratory 18 Rate Respiratory Rate [chest] Blood Pressure 126/68 O2 Sat by Pulse 98 Oximetry - General Appearance General appearance: well-developed, obese EENT: mucous membranes moist Neck: no JVD Respiratory: Present: Clear to Ascultation Cardiology: regular Gastrointestinal: normoactive bowel sounds Neurologic: alert and oriented x3 Musculoskeletal: other (left elbow swelling-same, right IJ catheter in use) Psychiatric: mood/affect appropriate, cooperative - Lab 05/21/17 04:38 05/22/17 14:43 Most recent lab results Calcium 7.6 mg/dL (8.4-10.2) L 05/22/17 14:43
--- NOTE | 2017-05-25 11:02 | Vascular Lab Report ---
UPPER EXTREMITY VENOUS DUPLEX: REASON FOR EXAM: Pain and swelling of the upper extremities COMMENTS ON THE RIGHT: All arm veins visualized are freely compressible without evidence of internal echogenicity. The subclavian and internal jugular veins are free of thrombus. Flow is spontaneous and phasic throughout. COMMENTS ON THE LEFT: All arm veins visualized are freely compressible without evidence of internal echogenicity. The subclavian and internal jugular veins are free of thrombus. Flow is spontaneous and phasic throughout. IMPRESSION: No evidence of acute or chronic deep venous thrombosis in the upper extremities.
--- NOTE | 2017-05-25 11:04 | Vascular Lab Report ---
Upper extremity arterial study Reason for exam: Upper extremity pain Comments: On the right, normal flow velocities are seen although a from the subclavian artery to the radial and ulnar arteries. Flow is triphasic throughout. There is no evidence of obstruction of the arteries of the right upper extremity. On the left, normal flow velocities are seen throughout the arterial system from the subclavian artery to the radial and ulnar arteries. Triphasic waveforms are seen throughout. There is no evidence of obstructed arteries in the left upper extremity. Impression: No evidence of arterial occlusive disease in either upper extremity.
[2017-05-25] MEDS: PROCRIT IV PRN (11:51)
[2017-05-25] MEDS: HEPARIN IV PRN (11:52)
[2017-05-25] MEDS: ASPIRIN PO SCH (12:23)
[2017-05-25] MEDS: COREG PO SCH (12:23)
[2017-05-25] MEDS: DELTASONE PO SCH (12:24)
[2017-05-25] MEDS: HumuLIN R SUB-Q SCH ×3 (12:26→12:40)
[2017-05-25] MEDS: LOVENOX SUB-Q SCH (12:28)
[2017-05-25] MEDS: SODIUM CHLORIDE FLUSH SYRINGE 10 ML IV SCH (12:38)
[2017-05-25] MEDS: LASIX PO SCH (12:40)
[2017-05-25] MEDS: ISORDIL TITRADOSE PO SCH ×2 (12:41→13:01)
[2017-05-25] MEDS: APRESOLINE PO SCH ×2 (12:41→13:02)
[2017-05-25] MEDS: NEURONTIN PO SCH ×2 (12:41→13:00)
--- NOTE | 2017-05-25 12:54 | Progress Note ---
Assessment and Plan Assessment: 1) Presumed SIRS: Present on admission, manifested by fever at home, tachycardia. Etiology unclear, should r/o persistent left elbow septic arthritis +/- cellulitis. 2) Recent left elbow septic arthritis due to MRSA: [place] [id number] -Synovial culture +MRSA. -Ortho consult no indication for surgery -CRP=7/6 on 04/11 -S/P vancomycin 1 g IV q48h on HD total 4 weeks until 05/12/17 -Repeat CT of the left arm showed possible cellulitis in the proximal ulnar area. Shows soft tissue swelling. No abscess seen. -As per ortho on 05/19 no evidence of septic arthritis. -Left elbow pain is improved. 3) Recent [employer] septicemia: -04/11/17 Blood cultures [employer] 2 of 4 bottles. -04/15/17 Blood cultures negative. -TTE no vegetations. -HD permcath placed in Mar 2017. -Blood cx 05/23 NGTD 4) CAD / [place] / CHF / HTN 5) DM 6) DVT/PE 7) ESRD on HD (M,W,F) 8) COPD Plan: s/p 7 days of zosyn/cefazolin. Still detectable vancomycin level and supratherapeutic. No further antibiotics for discharge. Tanesha Mosquera MD Infectious Diseases Specialist [facility] C [phone] Subjective Date of service: 05/25/17 Principal diagnosis: chest pain, HF, septic Interval history: Afebrile. Left elbow pain is mild. Feels dizzy after HD. Microbiology: Blood cultures: 04/11 Coagulase Negative Staph 03/18 bottles 04/15 neg 05/23 NGTD Current Antimicrobials: Cefazolin 05/23- IV vancomycin 05/23- Previous Antimicrobials: Vancomycin 04/11-05/12 Zosyn 05/19-05/23 Objective - Exam Narrative Exam: General appearance: Alert in NAD, conversant Eyes: anicteric sclerae, moist conjunctivae; PERRLA HENT: Atraumatic; oropharynx clear, with moist mucous membranes and no mucosal ulcerations/no oral thrush; normal hard and soft palate. Normal external ears. Neck: Trachea midline; supple, no thyromegaly or lymphadenopathy Lungs: CTA, with normal respiratory effort and no intercostal retractions CV: S1,S2. Abdomen: Soft, non-tender; no masses or hepatosplenomegaly Extremities: Left forearm resolved edema. No open wounds or erythema. Skin: Normal temperature, turgor and texture; no rash, ulcers or subcutaneous nodules Psych: Appropriate affect, alert and oriented to person, place and time. Neuro: alert and oriented x 3. Moving all extremities Lines: Right subclavian HD cath - no edema, no erythema, no drainage. - Constitutional Vitals: Vital Signs Temp Pulse Resp BP Pulse Ox 97.7 F 82 18 134/80 96 05/25/17 08:15 05/25/17 12:30 05/25/17 08:15 05/25/17 12:30 05/25/17 10:00 Temperature -Last 24 Hours Temperature 97.7 F Temperature 97.7 F Temperature 98.2 F Temperature 98.5 F Temperature 98.5 F Temperature 98.2 F - Labs CBC & Chem 7: 05/21/17 04:38 05/22/17 14:43 Labs: Abnormal lab results 05/24/17 05/24/17 05/24/17 Range/Units 12:33 17:13 22:29 POC Glucose 145 H 247 H 397 H (70-105)
[2017-05-25 13:30] VITALS: BP 119/70
--- NOTE | 2017-05-25 15:23 | Discharge Summary ---
Providers - Providers Date of Admission: 05/18/17 23:30 Attending physician: GREG VIRK MD 05/18/17 22:32 Consult to Physician [CONS] Urgent Comment: Dr. Rosado (er dr) spoke with Dr. Maciel Consulting Provider: SAIRA MACIEL Physician Instructions: Reason For Exam: left elbow pain recent MRSA joint infection 05/18/17 22:37 Consult to Physician [CONS] Urgent Comment: Dr. Rosado (er dr) spoke with Dr. Rivera Consulting Provider: DEBBIE RIVERA Physician Instructions: Reason For Exam: esrd ? septic arthritis left elbow 05/20/17 02:00 Consult to Physician [CONS] Routine Comment: Consulting Provider: TANO PRIDE Physician Instructions: Reason For Exam: left arm pain and CP after PC placmeent 05/23/17 10:37 Consult to Physician [CONS] Routine Comment: Consulting Provider: HAMILTON ALVARADO Physician Instructions: Reason For Exam: left UE cellulitis Primary care physician: MARLON FOY Hospitalization Condition: Stable Disposition: DC-01 TO HOME OR SELFCARE Time spent for discharge: 33 minutes Core Measure Documentation - Palliative Care Palliative Care/ Comfort Measures: Not Applicable - Core Measures Any of the following diagnoses?: none Exam - Constitutional Vitals: Temp Pulse Resp BP Pulse Ox 97.9 F 86 18 119/70 96 05/25/17 12:45 05/25/17 12:45 05/25/17 12:45 05/25/17 12:45 05/25/17 10:00 General appearance: Present: no acute distress, well-nourished - EENT Eyes: Present: PERRL ENT: hearing intact, clear oral mucosa - Neck Neck: Present: supple, normal ROM - Respiratory Respiratory effort: normal Respiratory: bilateral: CTA - Cardiovascular Heart Sounds: Present: S1 & S2. Absent: rub, click - Extremities Extremities: pulses symmetrical, No edema Peripheral Pulses: within normal limits - Abdominal General gastrointestinal: Present: soft, non-tender, non-distended, normal bowel sounds Male genitourinary: Present: normal - Integumentary Integumentary: Present: clear, warm, dry - Musculoskeletal Musculoskeletal: gait normal, strength equal bilaterally - Psychiatric Psychiatric: appropriate mood/affect, intact judgment & insight - Neurologic Neurologic: CNII-XII intact, moves all extremities Plan Follow up with: MARLON FOY MD, PHD [Primary Care Provider] - 3-5 Days Prescriptions: HYDROcodone/APAP 5-325 [[place] 5-325 mg TAB] 1 each PO Q6H PRN #14 tablet PRN Reason: Pain, Moderate (4-6) Prednisone [predniSONE (Efra) ER TAB] 0 mg PO QDAY 4 Days tablet.
== END 2017-05-25 18:09 | disposition home or self-care (01) | DRG 548 ==
LOC: ED 17:11 → 4A 23:30
PROVIDERS: ADMIT Internal Medicine; ATTEND Internal Medicine
PROC: 5A1D70Z Performance of Urinary Filtration, Intermittent, Less than 6 Hours Per Day (ICD-10-PCS; principal; 2017-05-20)
PROC: 5A1D70Z Performance of Urinary Filtration, Intermittent, Less than 6 Hours Per Day (ICD-10-PCS; 2017-05-23)
PROC: 5A1D70Z Performance of Urinary Filtration, Intermittent, Less than 6 Hours Per Day (ICD-10-PCS; 2017-05-25)
DX: M00.822 Arthritis due to other bacteria, left elbow (principal); N18.6 End stage renal disease; I50.22 Chronic systolic (congestive) heart failure; R65.10 Systemic inflammatory response syndrome (SIRS) of non-infectious origin without acute organ dysfunction; I13.2 Hypertensive heart and chronic kidney disease with heart failure and with stage 5 chronic kidney disease, or end stage renal disease; I42.9 Cardiomyopathy, unspecified; L03.114 Cellulitis of left upper limb; D63.1 Anemia in chronic kidney disease; I27.20 Pulmonary hypertension, unspecified; E66.9 Obesity, unspecified; G47.30 Sleep apnea, unspecified; J44.9 Chronic obstructive pulmonary disease, unspecified; I25.10 Atherosclerotic heart disease of native coronary artery without angina pectoris; E11.22 Type 2 diabetes mellitus with diabetic chronic kidney disease; H40.9 Unspecified glaucoma; Z82.49 Family history of ischemic heart disease and other diseases of the circulatory system; Z83.3 Family history of diabetes mellitus; Z79.82 Long term (current) use of aspirin; Z79.899 Other long term (current) drug therapy; Z79.4 Long term (current) use of insulin; Z86.718 Personal history of other venous thrombosis and embolism; Z79.01 Long term (current) use of anticoagulants; Z99.2 Dependence on renal dialysis; Z68.33 Body mass index [BMI] 33.0-33.9, adult
CPT/HCPCS: 36415; 71046; 80048; 80053; 80061; 80202; 82550; 82553; 82962; 84484; 85025; 85610; 85730; 86140; 87040; 93005; 93010; 93930; 93970; 96374; 96375; A9270-GY; J0690; J0696; J0885; J1170; J1644; J1650; J1815; J2405; J2543; J3370; J7030; J7040; J7512; Q9967

== ENCOUNTER 2017-07-19 10:02 | Day surgery (SDC) | payer MEDICARE ==
[~2017-07-19 10:02] MED LIST: ANCEF/STERILE WATER 2 GM/20 ML 2 GM/20 ML SYRINGE IV NR; NACL 0.9% 1000 ML 1,000 ML IV SCH; VERSED IV NR
--- NOTE | 2017-07-19 12:25 | Anesthesia Consultation ---
Anesthesia Consult and Med Hx Date of service: 07/19/17 - Airway Anesthetic Teeth Evaluation: Poor (many missing, ) ROM Head & Neck: Adequate Mental/Hyoid Distance: Adequate Mallampati Class: Class III Intubation Access Assessment: Probably Good - Pulmonary Exam CTA: Yes - Cardiac Exam Cardiac Exam: RRR - Pre-Operative Health Status ASA Pre-Surgery Classification: ASA4 Proposed Anesthetic Plan: General - Pulmonary Hx Smoking: Yes Hx Asthma: Yes COPD: Yes - Cardiovascular System Hx Hypertension: Yes Hx Coronary Artery Disease: Yes (ECHO 04/15/17 EF 30-35%, LVH, mod global hypokinesis, QTc 412) Hx Heart Attack/AMI: Yes - Central Nervous System Hx Psychiatric Problems: No - Endocrine Hx Renal Disease: Yes ("kidney problems" renal insufficiency) Hx End Stage Renal Disease: Yes - Other Systems Hx Cancer: No
--- NOTE | 2017-07-19 12:26 | Anesthesia Day of Surgery ---
Anesthesia Day of Surgery - Day of Surgery Patient Examined: Yes Patient H&P Reviewed: Yes Patient is NPO: Yes
[2017-07-19 13:07] LABS: Basophils # (Auto) 0.1 K/mm3 (0.0-0.1); Basophils % (Auto) 0.8 % (0.0-1.8); Eosinophils # (Auto) 0.2 K/mm3 (0.0-0.4); Eosinophils % (Auto) 2.8 % (0.0-4.3); Hematocrit 36.4 % (35.5-45.6); Hemoglobin 11.8 gm/dl (11.8-15.2); Lymphocytes # (Auto) 1.6 K/mm3 (1.2-5.4); Mean Corpuscular HGB Conc 33 % (32-34); Mean Corpuscular Hemoglobin 27 pg (28-32); Mean Corpuscular Volume 83 fl (84-94); Monocytes # (Auto) 0.6 K/mm3 (0.0-0.8); Monocytes % (Auto) 8.8 % (0.0-7.3); Platelet Count 179 K/mm3 (140-440); Red Blood Count 4.38 M/mm3 (3.65-5.03); Red Cell Distribution Width 16.4 % (13.2-15.2)
[2017-07-19 13:23] LABS: Calcium 8.6 mg/dL (8.4-10.2)
[2017-07-19] MEDS ORDERED: XYLOCAINE MPF 2% ONE (14:01)
[2017-07-19] MEDS ORDERED: AMIDATE IV ONE ×2 (14:01→16:56)
[2017-07-19] MEDS ORDERED: ZOFRAN ONE (14:01)
[2017-07-19] MEDS ORDERED: SUBLIMAZE ONE (14:01)
[2017-07-19] MEDS ORDERED: ePHEDrine 50 MG/5 ML-0.9% NACL IV ONE (14:02)
[2017-07-19] MEDS ORDERED: HEPARIN 10,000 UNITS/10 ML ONE (14:16)
[2017-07-19] MEDS ORDERED: MARCAINE 0.5% 30 ML INFILTRATI ONE (14:16)
[2017-07-19] MEDS ORDERED: GELFOAM TP ONE ×2 (14:16→14:40)
[2017-07-19] MEDS ORDERED: NACL 0.9% 500 ML 500 ML ONE ×2 (14:17)
[2017-07-19] MEDS ORDERED: THROMBIN (BOVINE) TP ONE ×2 (14:17→14:40)
[2017-07-19] MEDS ORDERED: NACL 0.9% 500 ML IRRIGATION ONE (14:40)
[2017-07-19] MEDS ORDERED: HEPARIN 10,000 UNITS/10 ML IV ONE (14:40)
[2017-07-19] MEDS ORDERED: NACL 0.9% IR ONE (14:40)
[2017-07-19] MEDS ORDERED: NITROGLYCERIN SYRINGE ART-SHEATH ONE (14:40)
[2017-07-19] MEDS ORDERED: VERSED ONE (14:55)
[2017-07-19] MEDS ORDERED: NEO SYNEPHRINE/NS Syringe(OR USE) IV ONE (15:00)
[2017-07-19] MEDS ORDERED: DIPRIVAN 10 MG/ML IV ONE ×2 (15:01→16:15)
[2017-07-19] MEDS ORDERED: XYLOCAINE 1% 20 mL ONE (15:08)
[2017-07-19] MEDS ORDERED: NITROGLYCERIN SYRINGE 3 ML ONE (15:28)
--- NOTE | 2017-07-19 17:04 | Short Stay Summary ---
Short Stay Documentation Date of service: 07/19/17 - History H&P: obtained from office - Allergies and Medications Current Medications: Allergies No Known Allergies Allergy (Verified 04/11/17 08:05) Home Medications Medication Instructions Recorded Confirmed Last Taken Type Latanoprost 1 drop OU QHS 04/11/13 07/19/17 07/19/17 08:30 History Aspirin [Aspirin TAB] 325 mg PO QDAY #30 tablet 10/29/16 07/19/17 07/19/17 08: 30 Rx Gabapentin [Neurontin] 300 mg PO Q8H #90 capsule 10/29/16 07/19/17 07/17/17 19: 00 Rx AtorvaSTATin [Lipitor] 40 mg PO QHS #30 tablet 03/14/17 07/19/17 1 Day Ago Rx ~05/19/17 Carvedilol [Coreg] 25 mg PO BID #60 tablet 03/14/17 07/19/17 1 Day Ago Rx ~05/19/17 Furosemide [Lasix TAB] 40 mg PO 0600,1800 #60 tablet 03/14/17 07/19/17 07/18/17 17:00 Rx Insulin NPH Hum/Reg Insulin Hm 36 unit SQ BID 30 Days vial 03/14/17 07/19/17 1 Day Ago Rx [HumuLIN 70-30 Vial] ~05/19/17 Isosorbide Dinitrate [Isordil 10 mg PO Q8HR #90 tablet 03/14/17 07/19/17 1 Day Ago Rx Titradose] ~05/19/17 hydrALAZINE [Apresoline TAB] 50 mg PO Q8HR #180 tablet 03/14/17 07/19/17 08:00 Rx HYDROcodone/APAP 5-325 [[place] 1 each PO Q6H PRN #14 tablet 05/25/17 07/19/17 Unknown Rx 5-325 mg TAB] Prednisone [predniSONE (Efra) ER 0 mg PO QDAY 4 Days tablet. 05/25/17 Unknown Rx TAB] Active Medications Cefazolin Sodium (Ancef/Sterile Water 2 Gm/20 Ml) 2 gm in 20 mls @ 80 mls/hr IV PREOP NR; Protocol Stop: 07/19/17 23:59 Sodium Chloride (Nacl 0.9% 1000 Ml) 1,000 mls @ 42 mls/hr IV DIRECT KARINE Last Admin: 07/19/17 13:00 Dose: 42 mls/hr Midazolam HCl (Versed) 2 mg IV PREOP NR Stop: 07/19/17 23:59 - Brief post op/procedure progress note Date of procedure: 07/19/17 Pre-op diagnosis: ESRD Post-op diagnosis: same Procedure: Radiocephalic fistula at the wrist by cephalic vein transposition, LUE Anesthesia: MAC, local Findings: good thrill at end of case Surgeon: JAYEDN PARDO Estimated blood loss: minimal Pathology: none Condition: stable - Hospital course Hospital course: benign - Disposition Condition at discharge: Good Disposition: DC-01 TO HOME OR SELFCARE Short Stay Discharge Plan Activity: advance as tolerated Diet: advance as tolerated Wound: per your surgeon's advice Follow up with: JAYDEN PARDO MD [Staff Physician] - 14 Days Prescriptions: HYDROcodone/APAP 5-325 [[place] 5/325] 1 each PO Q6HR PRN #30 tablet PRN Reason: Pain
--- NOTE | 2017-07-19 17:09 | Operative Report ---
Operative Report Operative Report: Date of procedure: 07/19/2017 Pre-operative diagnosis: End stage renal failure Post-operative diagnosis: Same Procedure name(s): Left wrist cephalic vein to radial artery fistula by cephalic vein transposition. Surgeon: Timothy Casanova MD Supervisor [employer] Workers: None Anesthesia: Local MAC EBL: Minimal Operative indication: Patient is a 66-year-old man who presents now for creation of an arteriovenous fistula for long-term hemodialysis access. Findings: Good thrill at the end of the procedure. Procedure: The patient was placed on the table in supine position and given appropriate anesthesia. The area over the left arm was prepped with ChloraPrep solution and draped the usual sterile fashion. Real-time ultrasound was used to natalie the cephalic vein at the wrist. The vein appeared to be of adequate caliber with no evidence of obvious thrombosis. The vein was distributed more toward the posterior surface of the arm and that was not near the radial artery. It was clear that it was defibrillated to a direct primary anastomosis. 1% lidocaine was used for local anesthetic. An incision was made over the top of the cephalic vein and it was freed up from the surrounding structures. The vein appeared to be of adequate caliber. A second incision was made over the radial artery dissection was carried out to identify this vessel. It was of adequate caliber and appeared be suitable for use. A subcutaneous days tunnel was made between the 2 incisions. The patient was given 2000 units of intravenous heparin. The cephalic vein was freed up and then dilated and placed through the tunnel toward the artery. The artery was occluded with Vesseloops proximal and distally. An end of the vein to the side of the artery anastomosis was done was with 7-0 Prolene. All vessels were flushed and then remove any air or debris. Nitroglycerin had been placed in all the vessels. Flow started into the arterial venous fistula with the development of an immediate and excellent thrill along the forearm. Meticulous hemostasis was obtained. Closure was done with 3-0 Vicryl and 4-0 subcuticular PDS. Sterile dressings were applied. Sponge, needle, and instrument counts were reported as correct. The patient tolerated the procedure well was taken from the operating room to the recovery room in stable condition with a palpable thrill in his fistula.
[2017-07-19 17:45] VITALS: BP 131/84
== END 2017-07-19 10:03 | disposition home or self-care (01) ==
LOC: OR 10:02
PROVIDERS: ATTEND Surgery Vascular Surgery
DX: E11.22 Type 2 diabetes mellitus with diabetic chronic kidney disease (principal); I13.2 Hypertensive heart and chronic kidney disease with heart failure and with stage 5 chronic kidney disease, or end stage renal disease; N18.6 End stage renal disease; I50.9 Heart failure, unspecified; I25.2 Old myocardial infarction; I25.10 Atherosclerotic heart disease of native coronary artery without angina pectoris; J44.9 Chronic obstructive pulmonary disease, unspecified; F17.200 Nicotine dependence, unspecified, uncomplicated; E66.9 Obesity, unspecified; Z86.718 Personal history of other venous thrombosis and embolism; Z79.01 Long term (current) use of anticoagulants; Z90.49 Acquired absence of other specified parts of digestive tract; Z68.36 Body mass index [BMI] 36.0-36.9, adult
CPT/HCPCS: 36415; 36818; 80048; 82962; 85025; A4649; C1757; J0690; J1644; J2250; J2370; J2405; J2704; J3010; J7030; J7040

== ENCOUNTER 2017-08-22 20:13 | Emergency (ER) | payer MEDICARE ==
--- NOTE | 2017-08-22 22:47 | XRay Report ---
FINAL REPORT PROCEDURE: XR CHEST ROUTINE 2V TECHNIQUE: PA and lateral chest radiographs were obtained. CPT 38805 HISTORY: Shortness of breath COMPARISON: 05/18/2017 FINDINGS: Heart: Prominent cardiac silhouette. Mediastinum/Vessels: Normal. Lungs/Pleural space: No infiltrate, effusion, or pneumothorax. Bony thorax: No acute osseous abnormality. Other: Right central venous catheter tip is in the proximal right atrium IMPRESSION: Prominent cardiac silhouette. No pulmonary infiltrates are identified
[2017-08-22] MEDS ORDERED: NORCO 5/325 PO ONE (23:24)
[2017-08-22] MEDS ORDERED: ZOFRAN IV ONE (23:24)
[2017-08-22] MEDS ORDERED: MORPHINE IV ONE (23:24)
[2017-08-22] MEDS ORDERED: DUONEB *Not for PRN Use IH ONE (23:25)
--- NOTE | 2017-08-22 23:30 | Emergency Department Report ---
ED General Adult HPI - General Chief complaint: Dyspnea/Respdistress Stated complaint: SOB Time Seen by Provider: 08/22/17 23:16 Source: patient Mode of arrival: Ambulatory Limitations: No Limitations - History of Present Illness Initial comments: Mr. Hammer is 66 yo male with hx of COPD, CHF, ESRD presents with chest pain, abdominal pain and dyspnea. He also had left temporal headache. Mild left side headache, non descript. 1-2 days of lower chest pain and epigastric pain. Difficult to describe. Shortness of breath was present prior to dialysis. - Related Data Home Medications Medication Instructions Recorded Confirmed Last Taken Latanoprost 1 drop OU QHS 04/11/13 07/19/17 07/19/17 08:30 Previous Rx's Medication Instructions Recorded Last Taken Type Aspirin [Aspirin TAB] 325 mg PO QDAY #30 tablet 10/29/16 07/19/17 08:30 Rx Gabapentin [Neurontin] 300 mg PO Q8H #90 capsule 10/29/16 07/17/17 19:00 Rx AtorvaSTATin [Lipitor] 40 mg PO QHS #30 tablet 03/14/17 1 Day Ago Rx ~05/19/17 Carvedilol [Coreg] 25 mg PO BID #60 tablet 03/14/17 1 Day Ago Rx ~05/19/17 Furosemide [Lasix TAB] 40 mg PO 0600,1800 #60 tablet 03/14/17 07/18/17 17:00 Rx Insulin NPH Hum/Reg Insulin Hm 36 unit SQ BID 30 Days vial 03/14/17 1 Day Ago Rx [HumuLIN 70-30 Vial] ~05/19/17 Isosorbide Dinitrate [Isordil 10 mg PO Q8HR #90 tablet 03/14/17 1 Day Ago Rx Titradose] ~05/19/17 hydrALAZINE [Apresoline TAB] 50 mg PO Q8HR #180 tablet 03/14/17 07/19/17 08:00 Rx HYDROcodone/APAP 5-325 [Franklin 1 each PO Q6H PRN #14 tablet 05/25/17 Unknown Rx 5-325 mg TAB] Prednisone [predniSONE (Efra) ER 0 mg PO QDAY 4 Days tablet. 05/25/17 Unknown Rx TAB] HYDROcodone/APAP 5-325 [Franklin 1 each PO Q6HR PRN #30 tablet 07/19/17 Unknown Rx 5/325] Zolpidem [Ambien] 10 mg PO QHS 7 Days #7 tab 08/23/17 Unknown Rx Allergies Allergy/AdvReac Type Severity Reaction Status Date / Time No Known Allergies Allergy Verified 04/11/17 08:05 ED Review of Systems ROS: Stated complaint: SOB Other details as noted in HPI Comment: All other systems reviewed and negative Constitutional: malaise. denies: fever Respiratory: cough Cardiovascular: chest pain Gastrointestinal: abdominal pain. denies: nausea, vomiting, diarrhea Neurological: headache ED Past Medical Hx - Past Medical History Hx Hypertension: Yes Hx Heart Attack/AMI: Yes Hx Congestive Heart Failure: Yes Hx Diabetes: Yes Hx Deep Vein Thrombosis: Yes Hx Pulmonary Embolism: Yes Hx GERD: Yes Hx Renal Disease: Yes ("kidney problems" renal insufficiency) Hx Arthritis: Yes Hx Asthma: Yes Hx COPD: Yes Hx HIV: No Additional medical history: glaucoma - Surgical History Additional Surgical History: left lung surgery (secondary to a "spot" on his lungs noncancerous) June, right chest perm cath - Social History Smoking Status: Never Smoker Substance Use Type: None Other Social History: lives with daughter - Medications Home Medications: Home Medications Medication Instructions Recorded Confirmed Last Taken Type Latanoprost 1 drop OU QHS 04/11/13 07/19/17 07/19/17 08:30 History Aspirin [Aspirin TAB] 325 mg PO QDAY #30 tablet 10/29/16 07/19/17 07/19/17 08: 30 Rx Gabapentin [Neurontin] 300 mg PO Q8H #90 capsule 10/29/16 07/19/17 07/17/17 19: 00 Rx AtorvaSTATin [Lipitor] 40 mg PO QHS #30 tablet 03/14/17 07/19/17 1 Day Ago Rx ~05/19/17 Carvedilol [Coreg] 25 mg PO BID #60 tablet 03/14/17 07/19/17 1 Day Ago Rx ~05/19/17 Furosemide [Lasix TAB] 40 mg PO 0600,1800 #60 tablet 03/14/17 07/19/17 07/18/17 17:00 Rx Insulin NPH Hum/Reg Insulin Hm 36 unit SQ BID 30 Days vial 03/14/17 07/19/17 1 Day Ago Rx [HumuLIN 70-30 Vial] ~05/19/17 Isosorbide Dinitrate [Isordil 10 mg PO Q8HR #90 tablet 03/14/17 07/19/17 1 Day Ago Rx Titradose] ~05/19/17 hydrALAZINE [Apresoline TAB] 50 mg PO Q8HR #180 tablet 03/14/17 07/19/17 08:00 Rx HYDROcodone/APAP 5-325 [Franklin 1 each PO Q6H PRN #14 tablet 05/25/17 07/19/17 Unknown Rx 5-325 mg TAB] Prednisone [predniSONE (Efra) ER 0 mg PO QDAY 4 Days tablet. 05/25/17 Unknown Rx TAB] HYDROcodone/APAP 5-325 [Franklin 1 each PO Q6HR PRN #30 tablet 07/19/17 Unknown Rx 5/325] Zolpidem [Ambien] 10 mg PO QHS 7 Days #7 tab 08/23/17 Unknown Rx ED Physical Exam - General Limitations: No Limitations General appearance: alert, in no apparent distress, other (laying at 30 degrees appears able to breath comfortably) - Head Head exam: Present: atraumatic, normocephalic - Eye Eye exam: Present: normal appearance - ENT ENT exam: Present: mucous membranes moist, other (left tympanic membrane normal) - Neck Neck exam: Present: normal inspection. Absent: tenderness, meningismus - Respiratory Respiratory exam: Present: normal lung sounds bilaterally. Absent: respiratory distress, wheezes, rhonchi - Cardiovascular Cardiovascular Exam: Present: regular rate, normal rhythm, normal heart sounds. Absent: bradycardia, tachycardia, systolic murmur, diastolic murmur, rubs, gallop - GI/Abdominal GI/Abdominal exam: Present: soft. Absent: distended, tenderness, guarding, rebound - Rectal Rectal exam: Present: deferred - Back Exam Back exam: Present: normal inspection - Neurological Exam Neurological exam: Present: alert, oriented X3 - Psychiatric Psychiatric exam: Present: normal affect, anxious - Skin Skin exam: Present: warm, dry, intact, normal color. Absent: rash ED Course Vital Signs 08/22/17 08/22/17 08/22/17 20:30 23:19 23:25 Temperature 98.7 F Pulse Rate 84 81 Pulse Rate [ 74 Anterior Bilateral Throughout] Respiratory 20 16 Rate Respiratory 20 Rate [Anterior Bilateral Throughout] Blood Pressure 157/86 Blood Pressure 147/98 [Left] O2 Sat by Pulse 98 97 Oximetry 08/22/17 23:38 Temperature Pulse Rate Pulse Rate [ 80 Anterior Bilateral Throughout] Respiratory Rate Respiratory 16 Rate [Anterior Bilateral Throughout] Blood Pressure Blood Pressure [Left] O2 Sat by Pulse Oximetry ED Medical Decision Making - Lab Data Result diagrams: 08/22/17 23:29 08/22/17 23:29 Laboratory Results - last 24 hr 08/22/17 08/22/17 08/22/17 23:29 23:29 23:29 WBC 5.5 RBC 4.37 Hgb 11.8 Hct 37.0 MCV 85 MCH 27 L MCHC 32 RDW 16.3 H Plt Count 176 Lymph % (Auto) 25.5 Bea[place]gard % (Auto) 7.5 H Eos % (Auto) 3.2 Baso % (Auto) 0.5 Lymph # 1.4 Bea[place]gard # 0.4 Eos # 0.2 Baso # 0.0 Seg Neutrophils % 63.3 Seg Neutrophils # 3.5 Sodium 139 Potassium 3.8 Chloride 99.7 Carbon Dioxide 29 Anion Gap 14 BUN 21 H Creatinine 3.1 H Estimated GFR 25 BUN/Creatinine Ratio 7 Glucose 245 H Calcium 8.8 Troponin T 0.083 H Lipase 33 - EKG Data -: EKG Interpreted by Me - EKG Data 08/22/17 23:29 Time obtained 2020 80 beats a minute normal sinus rhythm left axis deviation no ST elevation anterior inferior Q waves. EKG is unchanged from 05/19/2017. - Medical Decision Making Mr. Hammer presents with several concerns. Nonspecific headache without indication of CVA or meningitis. Daughter suspects sinus infection. He has nonspecific chest pain which appears to be predominantly epigastric central abdominal pain. No tenderness. He appears well. He has shortness of breath without signs of fluid overload or pulmonary edema. Does have a history of COPD. Clear breath sounds. +Hx of PE, no tachycardia. Oxygen saturation 100% RA. I reviewed electronic medical record. In May he was admitted for chest pain. Etiology was resumed to be musculoskeletal pain with history of recent normal cardiac cath last year. Mr. Hammer has multiple concerns which would be best served by his primary physician. He's had insomnia over the last few months. He's had abdominal upset since initiating dialysis. He was concerned for ear infection which we did rule out with physical exam. He also has had the headache for several weeks. He asked for sleeping aid. I did prescribe Ambien tablets. I did review labs. CT head and CT abdomen unremarkable for acute process positive hepatic cyst on the CT. Critical care attestation.: If time is entered above; I have spent that time in minutes in the direct care of this critically ill patient, excluding procedure time. ED Disposition Clinical Impression: COPD exacerbation, Acute chest pain, Abdominal pain, Headache Disposition: TO HOME OR SELFCARE Is pt being admited?: No Does the pt Need Aspirin: No Condition: Stable Instructions: Chest Pain (ED), Chronic Bronchitis (ED), Abdominal Pain (ED) Prescriptions: Zolpidem [Ambien] 10 mg PO QHS 7 Days #7 tab Referrals: PRIMARY CARE, [Primary Care Provider] - 3-5 Days Time of Disposition: 01:12
[2017-08-22 23:59] LABS: Basophils % (Auto) 0.5 % (0.0-1.8); Eosinophils # (Auto) 0.2 K/mm3 (0.0-0.4); Eosinophils % (Auto) 3.2 % (0.0-4.3); Hemoglobin 11.8 gm/dl (11.8-15.2); Lymphocytes # (Auto) 1.4 K/mm3 (1.2-5.4); Lymphocytes % (Auto) 25.5 % (13.4-35.0); Mean Corpuscular HGB Conc 32 % (32-34); Mean Corpuscular Hemoglobin 27 pg (28-32); Mean Corpuscular Volume 85 fl (84-94); Monocytes # (Auto) 0.4 K/mm3 (0.0-0.8); Monocytes % (Auto) 7.5 % (0.0-7.3); Platelet Count 176 K/mm3 (140-440); Red Blood Count 4.37 M/mm3 (3.65-5.03); Red Cell Distribution Width 16.3 % (13.2-15.2)
[2017-08-23 00:17] LABS: Calcium 8.8 mg/dL (8.4-10.2)
--- NOTE | 2017-08-23 00:29 | Cat Scan Report ---
FINAL REPORT PROCEDURE: CT HEAD/BRAIN WO CON TECHNIQUE: Computerized tomography of the head was performed without contrast material. HISTORY: headache COMPARISON: No prior studies are available for comparison. FINDINGS: Brain: There is no evidence of intracranial hemorrhage. No parenchymal hemorrhage is seen. No mass lesions or mass effect is identified. No abnormal extra-axial fluid collections or masses are seen. Old lacunar infarct visualized anteriorly in the right caudate nucleus. There is some decreased density seen in the periventricular white matter without mass effect. This is fairly symmetric and does not exhibit any mass effect consistent with gliosis probably on the basis of microvascular disease or white matter changes of aging. Ventricles: The ventricles, sulcal pattern and fissures are prominent consistent with atrophy. Bones: No evidence of acute fracture. Paranasal sinuses: There is mild nodular mucosal thickening in both maxillary sinuses. Visualized portions of the paranasal sinuses otherwise appear clear. No air-fluid levels are identified. Mastoid air cells: clear IMPRESSION: There is evidence of mild to moderate atrophy and gliosis. Old lacunar infarct visualize right caudate nucleus. No acute intracranial abnormalities are seen. Mild paranasal sinus disease as described.
--- NOTE | 2017-08-23 00:41 | Cat Scan Report ---
FINAL REPORT PROCEDURE: CT ABDOMEN PELVIS WO CON TECHNIQUE: Computerized axial tomography of the abdomen and pelvis was performed without intravenous contrast. This study is performed without intravascular contrast material and its sensitivity for abdominal and pelvic pathology, including neoplasms, inflammation, abscess, free fluid, thrombosis, arterial dissection and infarction, is reduced compared with a contrast enhanced study. HISTORY: abdominal pain COMPARISON: No prior studies are available for comparison. FINDINGS: Lower Lung jeff: There is minimal dependent atelectasis. Lung bases otherwise are clear. Upper Abdomen: Low-density 8.5 millimeter nodule is seen in the right lobe of the liver inferiorly medially. The appearance suggests a small hepatic cyst. The liver is otherwise unremarkable. Gallbladder is only partially filled otherwise unremarkable. The intrahepatic ducts are not distended. The adrenal glands, the pancreas and the spleen are unremarkable. Kidneys, Ureters and Urinary bladder: No abnormalities are seen. Retroperitoneum: Abdominal aorta appears normal. Atherosclerotic changes seen in the iliac arteries. No aneurysm is visualized. Nonspecific subcentimeter lymph nodes are seen in the retroperitoneum. No pathologically enlarged lymph nodes are identified. Bowel: Mild diverticulosis seen in the right side of the colon without evidence of diverticulitis. Normal-appearing appendix is seen in the right lower quadrant. No evidence of bowel obstruction ascites or free intraperitoneal gas. No focal bowel loop abnormality is seen. Small umbilical hernia containing adipose tissue is visualized. No herniated loops of bowel are identified. Reproductive organs: There is mild nonspecific diffuse prostate enlargement. Other: No acute bone abnormalities are identified. IMPRESSION: No acute abnormality is identified. Small hepatic cyst suspected right lobe of the liver. This could be confirmed with ultrasound if clinically indicated. Mild colonic diverticulosis without evidence of diverticulitis. There is mild nonspecific diffuse prostate enlargement..
[2017-08-23 01:22] VITALS: BP 133/60
[2017-08-23 01:50] LABS: Chol/HDL Ratio 6.85 %
== END 2017-08-23 01:28 | disposition home or self-care (01) ==
LOC: ED 20:13
DX: J44.1 Chronic obstructive pulmonary disease with (acute) exacerbation (principal); R51 Headache; I13.2 Hypertensive heart and chronic kidney disease with heart failure and with stage 5 chronic kidney disease, or end stage renal disease; E11.22 Type 2 diabetes mellitus with diabetic chronic kidney disease; N18.6 End stage renal disease; I50.9 Heart failure, unspecified; I25.2 Old myocardial infarction; K21.9 Gastro-esophageal reflux disease without esophagitis; M19.90 Unspecified osteoarthritis, unspecified site; Z99.2 Dependence on renal dialysis; Z79.4 Long term (current) use of insulin; Z79.82 Long term (current) use of aspirin; Z86.718 Personal history of other venous thrombosis and embolism
CPT/HCPCS: 36415; 70450; 71046; 74176; 80048; 80061; 83690; 84484; 85025; 93005; 93010; 94640; 96374; 96375; 99285; J2270; J2405